=== PATIENT | female | born 1980 | race Caucasian/White ===

== ENCOUNTER 2016-10-01 21:34 | Inpatient (IN) | payer MEDICAID ==
[~2016-10-01] VITALS: Ht 160 cm; Wt 54.0 kg
[2016-10-01 22:41] LABS: DEFINITIVE VIEW TRANSMISSION; Hematocrit 36.1 % (36.0-46.0); Hemoglobin 11.7 g/dL (12.2-16.2); Mean Corpuscular Hemoglobin 27.7 pg (28.0-32.0); Mean Corpuscular Hgb Conc. 32.4 g/dL (32.0-36.0); Mean Corpuscular Volume 85.5 fL (80.0-100.0); Mean Platelet Volume 7.9 fL (7.4-10.4); Platelet Count (auto) 492 10^3/uL (140-450); Red Cell Distribution Width 12.7 % (11.6-16.0); White Blood Cell 5.9 10^3/uL (4.4-10.8)
[2016-10-01 22:44] LABS: Albumin 3.1 g/dL (3.4-5.0); BUN/Creatinine Ratio 19.7; Calcium 8.8 mg/dL (8.5-10.1)
[2016-10-01 22:47] LABS: Bilirubin, Total 0.1 mg/dL (0.2-1.0); Total Protein 6.5 g/dL (6.4-8.2)
[2016-10-01 22:52] LABS: Potassium 2.2 mmol/L (3.5-5.1)
[2016-10-01 22:54] LABS: Metamyelocytes % 0; Myelocytes % 0; Promyelocytes % 0; Reactive Lymphocytes 0
[2016-10-01] MEDS: POTASSIUM CHL 20MEQ/100ML 100 ML IV SCH ×2 (23:00→23:15)
[2016-10-01] MEDS ORDERED: POTASSIUM CHL 10% (20 MEQ/15ML) ORAL SOLN PO ONE (23:00)
[2016-10-01 23:35] LABS: B-Type Natriuretic Peptide 18.69 pg/mL (0-100)
[2016-10-01 23:43] LABS: Temperature: 22.9 C (20.0-25.0)
[2016-10-02] MEDS ORDERED: ONDANSETRON HCL 4 MG/2 ML VIAL IV ONE
[2016-10-02] MEDS ORDERED: diphenhdrAMINE HCL 50 MG/1 ML VL IV ONE
[2016-10-02] MEDS ORDERED: MORPHINE SULFATE 4 MG/ML SYRG IV ONE
[2016-10-02 00:14] LABS: Platelet Estimate Increased; RBC Morphology Normal
[2016-10-02] MEDS: POTASSIUM CHL 20MEQ/100ML 100 ML IV SCH ×3 (00:28→02:32)
[2016-10-02] MEDS ORDERED: LORazepam 2MG/ML-1ML VIAL IV ONE (02:00)
[2016-10-02 07:18] LABS: Urine RBC None Seen /hpf (0 - 4)
[2016-10-02 07:40] LABS: Urine Bilirubin Negative (Negative); Urine Blood Negative /uL (Negative); Urine Color Yellow (Yellow); Urine Glucose Normal (Normal); Urine Ketone Negative (Negative); Urine Nitrite Negative (Negative); Urine Squamous Epithelial Cell FEW /hpf (<5); Urine Urobilinogen Normal (Negative); Urine pH 8.5 (5.0-8.0)
[2016-10-02] MEDS ORDERED: POTASSIUM CHL 10% (20 MEQ/15ML) ORAL SOLN PO ONE ×2 (09:00→09:30)
[2016-10-02] MEDS ORDERED: ZOLPIDEM TARTRATE 5 MG TAB PO PRN (09:00)
[2016-10-02] MEDS ORDERED: ALUM & MAG HYDROX-SIMETH LIQ(MAALOX) 30 ML PO PRN (09:00)
[2016-10-02] MEDS ORDERED: MORPHINE SULF INJ 2 MG/ML SYRINGE 1ML IV PRN ×2 (09:00)
[2016-10-02] MEDS ORDERED: METHOCARBAMOL 500 MG TAB PO PRN (09:00)
[2016-10-02] MEDS ORDERED: LORazepam 0.5 MG TAB PO PRN (09:00)
[2016-10-02] MEDS ORDERED: NITROGLYCERIN 0.4 MG SL TAB SL PRN ×2 (09:00)
[2016-10-02] MEDS ORDERED: ACETAMINOPHEN 325 MG TAB PO PRN (09:00)
[2016-10-02] MEDS: DOCUSATE SOD 100 MG CAP PO SCH ×3 (09:30→10:00)
[2016-10-02] MEDS: MAGNESIUM OXIDE 400 MG TAB PO SCH ×2 (09:30→22:28)
[2016-10-02] MEDS: ASPirin 81 mg TAB PO SCH ×3 (09:30→10:00)
[2016-10-02] MEDS: CLOPIDOGREL BISULFATE 75 MG TAB PO SCH ×3 (09:31→10:00)
[2016-10-02] MEDS: CARVEDILOL 3.125 MG TAB PO SCH ×2 (09:45→22:29)
[2016-10-02] MEDS: ONDANSETRON HCL 4 MG/2 ML VIAL IV PRN ×3 (09:46→20:45)
[2016-10-02] MEDS: CHOLECALCIFEROL (VITD3) 1,000 UNIT TAB PO SCH (09:46)
[2016-10-02] MEDS: ENALAPRIL MALEATE 2.5 MG TAB PO SCH ×2 (09:46→22:33)
[2016-10-02] MEDS ORDERED: POTA10SO11 PO (10:09)
[2016-10-02] MEDS ORDERED: ONDA8TAB6 PO (10:09)
[2016-10-02] MEDS ORDERED: PERCOT PO (10:09)
[2016-10-02] MEDS ORDERED: ACET-1079 PO (10:09)
[2016-10-02] MEDS ORDERED: METH-562 PO (10:09)
[2016-10-02] MEDS ORDERED: CARV6.2551 PO (10:09)
[2016-10-02] MEDS: SODIUM CHLOR 0.9% PF (SALINE LOCK) 10ML VIAL IV SCH ×2 (14:00→22:27)
[2016-10-02 14:28] VITALS: BP 113/74
[2016-10-02] MEDS: OXYCODONE W/ ACETAMINOPHEN 5/325MG TABLET PO PRN ×2 (16:05→22:28)
[2016-10-02] MEDS: POTASSIUM CHL 10% (20 MEQ/15ML) ORAL SOLN PO SCH ×2 (16:56→21:25)
[2016-10-02 17:07] VITALS: BP 100/70
[2016-10-02 20:00] VITALS: BP 102/73
[2016-10-02 22:00] VITALS: BP 102/73
[2016-10-02] MEDS ORDERED: ATORVASTATIN 20 MG TAB PO SCH (22:00)
[2016-10-03 05:00] VITALS: BP 104/75
[2016-10-03] MEDS: SODIUM CHLOR 0.9% PF (SALINE LOCK) 10ML VIAL IV SCH ×2 (06:25→14:00)
[2016-10-03] MEDS: ONDANSETRON HCL 4 MG/2 ML VIAL IV PRN ×2 (06:26→15:23)
[2016-10-03] MEDS: POTASSIUM CHL 10% (20 MEQ/15ML) ORAL SOLN PO SCH (06:54)
[2016-10-03] MEDS: OXYCODONE W/ ACETAMINOPHEN 5/325MG TABLET PO PRN ×2 (06:58→15:22)
[2016-10-03 07:42] LABS: Basophils # (auto) 0.2 uL; Basophils % (auto) 3.2 % (0.0-2.0); DEFINITIVE VIEW TRANSMISSION; Eosinophils # (auto) 0.1 uL; Eosinophils % (auto) 1.8 % (0.0-7.0); Hematocrit 36.8 % (36.0-46.0); Hemoglobin 11.7 g/dL (12.2-16.2); Lymphocytes # (auto) 3.1 uL; Lymphocytes % (auto) 50.5 % (10.0-50.0); Mean Corpuscular Hemoglobin 27.6 pg (28.0-32.0); Mean Corpuscular Hgb Conc. 31.7 g/dL (32.0-36.0); Mean Corpuscular Volume 87.1 fL (80.0-100.0); Mean Platelet Volume 8.3 fL (7.4-10.4); Monocytes # (auto) 0.4 uL; Monocytes % (auto) 6.1 % (0.0-12.0); Neutrophils # (auto) 2.4 uL; Neutrophils % (auto) 38.4 % (37.0-80.0); Platelet Count (auto) 513 10^3/uL (140-450); White Blood Cell 6.2 10^3/uL (4.4-10.8)
[2016-10-03 08:00] VITALS: BP 86/55
[2016-10-03 08:16] LABS: Albumin 3.1 g/dL (3.4-5.0); BUN/Creatinine Ratio 8.3; Bilirubin, Total 0.4 mg/dL (0.2-1.0); Calcium 9.1 mg/dL (8.5-10.1); Potassium 4.5 mmol/L (3.5-5.1); Total Protein 6.7 g/dL (6.4-8.2)
[2016-10-03] MEDS: ASPirin 81 mg TAB PO SCH (10:00)
[2016-10-03] MEDS: DOCUSATE SOD 100 MG CAP PO SCH (10:00)
[2016-10-03] MEDS: CARVEDILOL 3.125 MG TAB PO SCH (10:00)
[2016-10-03] MEDS: ENALAPRIL MALEATE 2.5 MG TAB PO SCH (10:00)
[2016-10-03] MEDS: CLOPIDOGREL BISULFATE 75 MG TAB PO SCH (10:22)
[2016-10-03] MEDS: MAGNESIUM OXIDE 400 MG TAB PO SCH (10:22)
[2016-10-03] MEDS: CHOLECALCIFEROL (VITD3) 1,000 UNIT TAB PO SCH (10:23)
[2016-10-03 12:00] VITALS: BP 112/66
[2016-10-03 16:00] VITALS: BP 108/75
[2016-10-03 16:37] VITALS: BP 108/75
== END 2016-10-03 18:05 | disposition home or self-care (01) | DRG 425 ==
LOC: ER 21:46 → TELE 21:47 → TELE-WESTW 10-02 10:13
PROVIDERS: ADMIT Internal Medicine; ATTEND Internal Medicine Pulmonary Disease
DX: E87.6 Hypokalemia (principal); Z86.74 Personal history of sudden cardiac arrest; E44.0 Moderate protein-calorie malnutrition; K51.90 Ulcerative colitis, unspecified, without complications; R07.89 Other chest pain; F17.210 Nicotine dependence, cigarettes, uncomplicated; D63.8 Anemia in other chronic diseases classified elsewhere; I49.9 Cardiac arrhythmia, unspecified; K29.50 Unspecified chronic gastritis without bleeding; F41.9 Anxiety disorder, unspecified; K27.9 Peptic ulcer, site unspecified, unspecified as acute or chronic, without hemorrhage or perforation; J45.909 Unspecified asthma, uncomplicated; G89.29 Other chronic pain; M54.9 Dorsalgia, unspecified; E73.9 Lactose intolerance, unspecified; Z98.890 Other specified postprocedural states; Z88.1 Allergy status to other antibiotic agents; Z88.5 Allergy status to narcotic agent; Z88.0 Allergy status to penicillin; Z88.8 Allergy status to other drugs, medicaments and biological substances; Z83.79 Family history of other diseases of the digestive system; Z68.21 Body mass index [BMI] 21.0-21.9, adult
CPT/HCPCS: 36415; 36600; 71010; 80053; 80061; 81001; 81025; 82805; 83735; 83880; 84132; 84484; 85007; 85025; 85027; 85379; 93005; 93306; 96374; 96375; J2405; J3480

== ENCOUNTER 2016-10-22 22:03 | Inpatient (IN) | payer MEDICAID ==
[~2016-10-22] VITALS: Ht 154.9 cm; Wt 53.0 kg
[~2016-10-22 22:03] MED LIST: ACET-1079 PO; CARV6.2551 PO; METH-562 PO; ONDA8TAB6 PO; PERCOT PO; POTA10SO11 PO
[2016-10-22 23:16] LABS: Basophils # (auto) 0.3 uL; Basophils % (auto) 2.9 % (0.0-2.0); Eosinophils # (auto) 0.1 uL; Eosinophils % (auto) 0.7 % (0.0-7.0); Hematocrit 44.3 % (36.0-46.0); Hemoglobin 14.9 g/dL (12.2-16.2); Lymphocytes # (auto) 3.8 uL; Lymphocytes % (auto) 34.7 % (10.0-50.0); Mean Corpuscular Hgb Conc. 33.7 g/dL (32.0-36.0); Mean Platelet Volume 8.8 fL (7.4-10.4); Monocytes # (auto) 0.7 uL; Monocytes % (auto) 6.1 % (0.0-12.0); Neutrophils # (auto) 6.2 uL; Neutrophils % (auto) 55.6 % (37.0-80.0); Platelet Count (auto) 469 10^3/uL (140-450); Red Cell Distribution Width 14.1 % (11.6-16.0); White Blood Cell 11.1 10^3/uL (4.4-10.8)
[2016-10-22 23:18] LABS: Albumin 3.6 g/dL (3.4-5.0); BUN/Creatinine Ratio 11.5; Calcium 8.8 mg/dL (8.5-10.1); Magnesium 2.1 mg/dL (1.6-2.6)
[2016-10-22 23:20] LABS: Bilirubin, Total 0.5 mg/dL (0.2-1.0); Total Protein 7.3 g/dL (6.4-8.2)
[2016-10-22 23:38] LABS: Potassium 2.2 mmol/L (3.5-5.1)
[2016-10-23] MEDS ORDERED: LORazepam 2MG/ML-1ML VIAL IV ONE (00:15)
[2016-10-23] MEDS ORDERED: MORPHINE SULFATE 4 MG/ML SYRG IV ONE ×3 (00:15→05:45)
[2016-10-23] MEDS ORDERED: POTASSIUM CHL 10% (20 MEQ/15ML) ORAL SOLN PO ONE ×2 (00:15→10:15)
[2016-10-23] MEDS ORDERED: ONDANSETRON HCL 4 MG/2 ML VIAL IV ONE ×2 (00:15→05:45)
[2016-10-23] MEDS: POTASSIUM CHL 20MEQ/100ML 100 ML IV SCH ×4 (00:38→20:20)
[2016-10-23] MEDS ORDERED: SODIUM CHLORIDE 0.9% 1,000 ML IV ONE ×3 (01:30→11:00)
[2016-10-23] MEDS ORDERED: diphenhdrAMINE HCL 50 MG/1 ML VL IV ONE (01:30)
[2016-10-23] MEDS ORDERED: TEMAZEPAM 15 MG CAP PO PRN (07:30)
[2016-10-23] MEDS ORDERED: MORPHINE SULF INJ 2 MG/ML SYRINGE 1ML IV PRN (07:30)
[2016-10-23] MEDS ORDERED: LACTULOSE 20Gm/30ML SOLN PO PRN (07:30)
[2016-10-23] MEDS ORDERED: POTASSIUM CHL 20 Meq TABLET PO ONE (07:30)
[2016-10-23] MEDS ORDERED: NITROGLYCERIN 0.4 MG SL TAB SL PRN (07:30)
[2016-10-23] MEDS ORDERED: ACETAMINOPHEN 500 MG TAB PO PRN (07:30)
[2016-10-23] MEDS: PROMETHAZINE HCL 25 MG/ML 1ML IV PRN ×5 (09:50→21:22)
[2016-10-23] MEDS: MORPHINE SULF INJ 2 MG/ML SYRINGE 1ML IV PRN ×3 (09:50→21:22)
[2016-10-23] MEDS: SOD CHL 0.9%/ KCL 40MEQ 1,000 ML IV SCH ×2 (10:26→23:08)
[2016-10-23] MEDS: PANTOPRAZOLE 40 MG TAB PO SCH (10:31)
[2016-10-23 17:29] VITALS: BP 91/64
[2016-10-23] MEDS: LORazepam 0.5 MG TAB PO PRN (19:31)
[2016-10-23] MEDS ORDERED: POTASSIUM CHL 20MEQ/100ML 100 ML IV ONE (20:13)
[2016-10-23 22:16] VITALS: BP 106/53
[2016-10-24] MEDS: SOD CHL 0.9%/ KCL 40MEQ 1,000 ML IV SCH ×3 (01:17→16:49)
[2016-10-24] MEDS: PROMETHAZINE HCL 25 MG/ML 1ML IV PRN ×5 (01:41→19:48)
[2016-10-24] MEDS: MORPHINE SULF INJ 2 MG/ML SYRINGE 1ML IV PRN ×3 (01:41→11:12)
[2016-10-24] MEDS: LORazepam 0.5 MG TAB PO PRN ×2 (01:42→08:08)
[2016-10-24 04:44] VITALS: BP 93/82
[2016-10-24 07:32] LABS: Albumin 2.4 g/dL (3.4-5.0); BUN/Creatinine Ratio 6.9; Bilirubin, Total 0.2 mg/dL (0.2-1.0); Calcium 8.4 mg/dL (8.5-10.1); Potassium 4.3 mmol/L (3.5-5.1); Total Protein 5.1 g/dL (6.4-8.2)
[2016-10-24 08:00] VITALS: BP 93/82
[2016-10-24 09:00] VITALS: BP 103/56
[2016-10-24] MEDS: PANTOPRAZOLE 40 MG TAB PO SCH (10:56)
[2016-10-24] MEDS ORDERED: chlorproMAZINE HCL 25 MG TAB PO PRN (12:30)
[2016-10-24 13:00] VITALS: BP 120/66
[2016-10-24] MEDS: MORPHINE SULFATE 4 MG/ML SYRG IV PRN ×2 (15:15→19:48)
[2016-10-24 16:44] LABS: Urine RBC None Seen /hpf (0 - 4)
[2016-10-24 16:47] VITALS: BP 89/58
[2016-10-24 17:30] LABS: Urine Bilirubin Negative (Negative); Urine Blood Negative /uL (Negative); Urine Color Yellow (Yellow); Urine Glucose Normal (Normal); Urine Ketone Negative (Negative); Urine Nitrite Negative (Negative); Urine Squamous Epithelial Cell FEW /hpf (<5); Urine Urobilinogen Normal (Negative); Urine pH 8.5 (5.0-8.0)
[2016-10-24 20:00] VITALS: BP 97/53
[2016-10-24] MEDS: clonazePAM 0.5 MG TAB PO SCH (21:22)
[2016-10-25] MEDS: PROMETHAZINE HCL 25 MG/ML 1ML IV PRN ×5 (00:38→20:46)
[2016-10-25] MEDS: SOD CHL 0.9%/ KCL 40MEQ 1,000 ML IV SCH (01:10)
[2016-10-25] MEDS: MORPHINE SULFATE 4 MG/ML SYRG IV PRN ×4 (01:25→20:45)
[2016-10-25 05:00] VITALS: BP 92/64
[2016-10-25 06:10] LABS: Basophils # (auto) 0.3 uL; Basophils % (auto) 2.8 % (0.0-2.0); Eosinophils # (auto) 0.2 uL; Eosinophils % (auto) 1.7 % (0.0-7.0); Hematocrit 36.4 % (36.0-46.0); Lymphocytes # (auto) 3.4 uL; Mean Corpuscular Hgb Conc. 32.9 g/dL (32.0-36.0); Mean Corpuscular Volume 88.2 fL (80.0-100.0); Mean Platelet Volume 9.3 fL (7.4-10.4); Monocytes # (auto) 0.2 uL; Monocytes % (auto) 1.9 % (0.0-12.0); Neutrophils % (auto) 55.6 % (37.0-80.0); Platelet Count (auto) 326 10^3/uL (140-450); White Blood Cell 8.9 10^3/uL (4.4-10.8)
[2016-10-25 06:37] LABS: BUN/Creatinine Ratio 7.9; Calcium 8.9 mg/dL (8.5-10.1); Magnesium 1.7 mg/dL (1.6-2.6); Phosphorus 3.3 mg/dL (2.5-4.90); Potassium 3.9 mmol/L (3.5-5.1)
[2016-10-25 07:42] VITALS: BP 109/72
[2016-10-25] MEDS ORDERED: LORazepam 2MG/ML-1ML VIAL IV PRN (10:15)
[2016-10-25] MEDS: PANTOPRAZOLE 40 MG TAB PO SCH (10:36)
[2016-10-25] MEDS: clonazePAM 0.5 MG TAB PO SCH ×2 (10:36→22:03)
[2016-10-25] MEDS ORDERED: PROMETHAZINE HCL 25 MG/ML 1ML IM ONE (10:45)
[2016-10-25] MEDS ORDERED: MORPHINE SULFATE 10 MG/ML INJ 1ML SDV IM ONE (10:45)
[2016-10-25 12:09] VITALS: BP 126/61
[2016-10-25] MEDS ORDERED: LIDOCAINE 1% HCL (LOCAL ANESTH.) INJ 20ML MDV ID ONE (14:00)
[2016-10-25] MEDS: D5W/SOD CHL 0.45%/KCL 20MEQ 1,000 ML IV SCH (14:33)
[2016-10-25 16:28] VITALS: BP 102/68
[2016-10-25 19:10] LABS: Sjogren's Anti-SS-A Antibody <0.2 AI (0.0-0.9)
[2016-10-25 20:00] VITALS: BP 112/78
[2016-10-25 22:00] VITALS: BP 112/78
[2016-10-25] MEDS: SODIUM CHLOR 0.9% PF (SALINE LOCK) 10ML VIAL IV SCH (22:23)
[2016-10-26 05:00] VITALS: BP 98/63
[2016-10-26] MEDS: PROMETHAZINE HCL 25 MG/ML 1ML IV PRN ×2 (06:16→10:27)
[2016-10-26] MEDS: D5W/SOD CHL 0.45%/KCL 20MEQ 1,000 ML IV SCH ×2 (06:38→06:42)
[2016-10-26 08:03] VITALS: BP 101/60
[2016-10-26] MEDS: SODIUM CHLOR 0.9% PF (SALINE LOCK) 10ML VIAL IV SCH (09:49)
[2016-10-26] MEDS: clonazePAM 0.5 MG TAB PO SCH (09:49)
[2016-10-26] MEDS: PANTOPRAZOLE 40 MG TAB PO SCH (09:49)
[2016-10-26] MEDS: MORPHINE SULFATE 4 MG/ML SYRG IV PRN (10:27)
[2016-10-26] MEDS ORDERED: LORazepam 2MG/ML-1ML VIAL IV ONE (12:00)
[2016-10-26 14:06] VITALS: BP 101/60
== END 2016-10-26 15:54 | disposition home or self-care (01) | DRG 460 ==
LOC: EDBD 22:03 → ER 22:08 → OVERFLOW 22:09 → TELE-E-ADS 10-23 15:11 → TELE-EAST 10-23 16:07 → EAST 10-24 16:57
PROVIDERS: ADMIT Internal Medicine; ATTEND Nurse Practitioner Acute Care
PROC: 02HV33Z Insertion of Infusion Device into Superior Vena Cava, Percutaneous Approach (ICD-10-PCS; principal; 2016-10-25)
DX: N17.0 Acute kidney failure with tubular necrosis (principal); E87.0 Hyperosmolality and hypernatremia; E87.3 Alkalosis; I95.9 Hypotension, unspecified; E87.1 Hypo-osmolality and hyponatremia; E88.09 Other disorders of plasma-protein metabolism, not elsewhere classified; G43.A0 Cyclical vomiting, in migraine, not intractable; E87.5 Hyperkalemia; E87.6 Hypokalemia; D72.829 Elevated white blood cell count, unspecified; J45.909 Unspecified asthma, uncomplicated; K29.70 Gastritis, unspecified, without bleeding; Z87.11 Personal history of peptic ulcer disease; F41.9 Anxiety disorder, unspecified; E86.0 Dehydration; F12.90 Cannabis use, unspecified, uncomplicated; F17.210 Nicotine dependence, cigarettes, uncomplicated; N17.9 Acute kidney failure, unspecified; Z80.0 Family history of malignant neoplasm of digestive organs; Z83.3 Family history of diabetes mellitus; Z87.442 Personal history of urinary calculi; Z88.1 Allergy status to other antibiotic agents; Z88.5 Allergy status to narcotic agent; Z88.0 Allergy status to penicillin; Z88.8 Allergy status to other drugs, medicaments and biological substances; Z90.12 Acquired absence of left breast and nipple; Z84.89 Family history of other specified conditions; E86.1 Hypovolemia; Z87.898 Personal history of other specified conditions; E86.9 Volume depletion, unspecified
CPT/HCPCS: 36415; 36569; 71010; 76705; 76775; 78226; 80048; 80053; 80061; 81001; 81025; 82550; 82570; 83516; 83735; 83935; 84100; 84133; 84300; 84443; 84484; 85025; 85379; 85652; 86225; 86235; 87081; 93005; 96374; 96375; 96376; G0434; J2405; J3480; Q0161

== ENCOUNTER 2016-11-10 21:12 | Observation (INO) | payer MEDICAID ==
[~2016-11-10] VITALS: Ht 154.9 cm; Wt 68.0 kg
[2016-11-10 21:55] LABS: Basophils # (auto) 0.1 uL; Basophils % (auto) 1.9 % (0.0-2.0); Eosinophils # (auto) 0 uL; Eosinophils % (auto) 0.5 % (0.0-7.0); Hematocrit 42.6 % (36.0-46.0); Hemoglobin 14.4 g/dL (12.2-16.2); Lymphocytes # (auto) 3.6 uL; Lymphocytes % (auto) 45.3 % (10.0-50.0); Mean Corpuscular Hemoglobin 29.1 pg (28.0-32.0); Mean Corpuscular Hgb Conc. 33.9 g/dL (32.0-36.0); Mean Corpuscular Volume 85.8 fL (80.0-100.0); Mean Platelet Volume 8.7 fL (7.4-10.4); Monocytes # (auto) 0.6 uL; Monocytes % (auto) 7.4 % (0.0-12.0); Neutrophils # (auto) 3.5 uL; Neutrophils % (auto) 44.9 % (37.0-80.0); Platelet Count (auto) 418 10^3/uL (140-450); Red Cell Distribution Width 15.1 % (11.6-16.0); White Blood Cell 7.9 10^3/uL (4.4-10.8)
[2016-11-10 22:14] LABS: Albumin 3.6 g/dL (3.4-5.0); Alkaline Phosphatase 65 U/L (45-117); Anion Gap 15 (5-15); Aspartate Aminotransferase 16 U/L (15-37); BUN/Creatinine Ratio 20.3; Bilirubin, Total 0.6 mg/dL (0.2-1.0); Blood Urea Nitrogen 13 mg/dL (7-18); Calcium 9.5 mg/dL (8.5-10.1); Carbon Dioxide 37 mmol/L (21-32); Chloride 80 mmol/L (98-107); GFR African American 134 mL/min; GFR Non-African American 110 mL/min; Glucose 92 mg/dL (74-106); Sodium 132 mmol/L (136-145); Total Protein 7.5 g/dL (6.4-8.2)
[2016-11-10 22:20] LABS: Potassium 2.3 mmol/L (3.5-5.1)
[2016-11-10] MEDS ORDERED: POTASSIUM CHL 20 Meq TABLET PO ONE (22:30)
[2016-11-10 23:34] LABS: INR 1.04 (0.9-1.15); Partial Thromboplastin Time 25.4 sec (22.64-33.71); Prothrombin Time 10.7 sec (9.37-12.3)
[2016-11-11] MEDS ORDERED: SODIUM CHLORIDE 0.9% 250 ML IV ONE
[2016-11-11 00:25] LABS: B-Type Natriuretic Peptide 20.38 pg/mL (0-100)
[2016-11-11 00:34] LABS: Temperature: 22.5 C (20.0-25.0)
[2016-11-11] MEDS: POTASSIUM CHL 20MEQ/100ML 100 ML IV SCH ×2 (00:51→03:14)
[2016-11-11] MEDS ORDERED: MORPHINE SULF INJ 2 MG/ML SYRINGE 1ML IV ONE (02:00)
[2016-11-11] MEDS ORDERED: ONDANSETRON HCL 4 MG/2 ML VIAL IV ONE ×2 (02:45)
[2016-11-11 06:52] VITALS: BP 106/62
== END 2016-11-11 05:27 | disposition home or self-care (01) | DRG 241 ==
LOC: ER 21:16 → OVERFLOW 11-11 03:51 → ER 11-11 05:27
PROVIDERS: ADMIT Emergency Medicine; ATTEND Emergency Medicine
DX: K29.00 Acute gastritis without bleeding (principal); F41.9 Anxiety disorder, unspecified; J45.909 Unspecified asthma, uncomplicated; Z87.11 Personal history of peptic ulcer disease; F17.210 Nicotine dependence, cigarettes, uncomplicated; Z79.899 Other long term (current) drug therapy
CPT/HCPCS: 36415; 80053; 83880; 84132; 84484; 85025; 85379; 85610; 85730; 93005; 96365; 96366; 96375; 96376; G0378; J2405; J3480

== ENCOUNTER 2016-12-21 02:37 | Emergency (ER) | payer MEDICAID ==
[~2016-12-21] VITALS: Ht 160 cm; Wt 43.5 kg
[2016-12-21 02:40] VITALS: BP 94/67
[2016-12-21 03:08] LABS: Urine Bilirubin Negative (Negative); Urine Blood Negative /uL (Negative); Urine Color Colorless (Yellow); Urine Glucose Normal (Normal); Urine Ketone Negative (Negative); Urine Nitrite Negative (Negative); Urine RBC <1 /hpf (0 - 4); Urine Urobilinogen Normal (Negative); Urine pH 7.5 (5.0-8.0)
[2016-12-21 03:22] LABS: BUN/Creatinine Ratio 14.9; Calcium 8.6 mg/dL (8.5-10.1)
[2016-12-21] MEDS ORDERED: ONDANSETRON ODT 4 MG TAB PO ONE (03:30)
[2016-12-21] MEDS ORDERED: POTASSIUM CHL 10% (20 MEQ/15ML) ORAL SOLN PO ONE (03:45)
[2016-12-21 03:59] LABS: Potassium 2.9 mmol/L (3.5-5.1)
[2016-12-21] MEDS ORDERED: ACETAMINOPHEN 500 MG TAB PO ONE (04:00)
== END 2016-12-21 04:05 | disposition home or self-care (01) ==
LOC: ER 02:37
DX: E87.6 Hypokalemia (principal); J45.909 Unspecified asthma, uncomplicated; F17.210 Nicotine dependence, cigarettes, uncomplicated; Z87.11 Personal history of peptic ulcer disease; Z88.1 Allergy status to other antibiotic agents; Z88.0 Allergy status to penicillin; Z88.6 Allergy status to analgesic agent
CPT/HCPCS: 36415; 80048; 81001; 81025; 99284; Q0162

== ENCOUNTER 2018-04-29 12:45 | Inpatient (IN) | payer MEDICAID, OTHER ==
[~2018-04-29] VITALS: Ht 152.4 cm; Wt 69.4 kg
[~2018-04-29 12:45] MED LIST changes: +ONDA-143 PO; -ONDA8TAB6 PO
[2018-04-29 13:51] LABS: Basophils # (auto) 0 uL; Basophils % (auto) 0.3 % (0.0-2.0); Eosinophils # (auto) 0 uL; Eosinophils % (auto) 0.2 % (0.0-7.0); Hematocrit 45.1 % (36.0-46.0); Hemoglobin 15.5 g/dL (12.2-16.2); Lymphocytes # (auto) 1.8 uL; Lymphocytes % (auto) 12.6 % (10.0-50.0); Mean Corpuscular Hemoglobin 29.5 pg (28.0-32.0); Mean Corpuscular Hgb Conc. 34.2 g/dL (32.0-36.0); Mean Corpuscular Volume 86.2 fL (80.0-100.0); Monocytes # (auto) 1.1 uL; Monocytes % (auto) 7.9 % (0.0-12.0); Neutrophils # (auto) 11.3 uL; Platelet Count (auto) 353 10^3/uL (140-450); Red Blood Cells 5.23 10^6/uL (4.0-5.20); Red Cell Distribution Width 13.7 % (11.8-14.3); White Blood Cell 14.3 10^3/uL (4.4-10.8)
[2018-04-29 14:06] LABS: Albumin 3.7 g/dL (3.4-5.0); BUN/Creatinine Ratio 18.8; Bilirubin, Total 1.6 mg/dL (0.2-1.0); Calcium 8.6 mg/dL (8.5-10.1); Potassium 3.1 mmol/L (3.5-5.1); Total Protein 7.7 g/dL (6.4-8.2)
[2018-04-29 15:17] LABS: Urine Bacteria NONE SEEN /hpf (None Seen); Urine Blood Negative /uL (Negative); Urine Mucus FEW (None Seen); Urine Specific Gravity 1.017 (1.001-1.035); Urine WBC 5 /hpf (0 - 5)
[2018-04-29] MEDS ORDERED: MORPHINE SULF INJ 2 MG/ML SYRINGE 1ML IV ONE (15:30)
[2018-04-29] MEDS ORDERED: SODIUM CHLORIDE 0.9% 1,000 ML IV ONE (15:30)
[2018-04-29] MEDS ORDERED: PANTOPRAZOLE 40 MG/10 ML VIAL IV ONE ×2 (15:30→19:15)
[2018-04-29] MEDS ORDERED: PROMETHAZINE HCL 25 MG/ML 1ML IV ONE (15:30)
[2018-04-29 15:51] LABS: Alcohol, Urine < 3.0 mg/dL (0-5); Barbiturate Scree,Urine NEGATIVE (NEGATIVE); Benzodiazephine Screen, Urine NEGATIVE (NEGATIVE); Cannabinoid Screen, Urine POSITIVE (NEGATIVE); Cocaine Screen, Urine NEGATIVE (NEGATIVE); Opiate Scree,Urine NEGATIVE (NEGATIVE); Phencyclidine Screen, Urine NEGATIVE (NEGATIVE)
[2018-04-29] MEDS ORDERED: SODIUM CHLORIDE 0.9% 1,000 ML IVB ONE (16:00)
[2018-04-29 16:12] LABS: Amphetamine Screen, Urine POSITIVE (NEGATIVE)
[2018-04-29] MEDS ORDERED: DEXTROSE (50%) 50ML SYRG IV ONE (17:15)
[2018-04-29] MEDS ORDERED: NITROGLYCERIN 0.4 MG SL TAB SL PRN (19:15)
[2018-04-29] MEDS ORDERED: MORPHINE SULF INJ 2 MG/ML SYRINGE 1ML IV PRN (19:15)
[2018-04-29] MEDS ORDERED: ACETAMINOPHEN 325 MG TAB PO PRN (19:15)
[2018-04-29] MEDS ORDERED: FAMOTIDINE (10MG/ML) 2ML VL IV ONE (19:15)
[2018-04-29] MEDS ORDERED: DOCUSATE SOD 100 MG CAP PO PRN (19:15)
[2018-04-29] MEDS ORDERED: POTASSIUM EFFERVESENT TAB 25 MEQ PO ONE (19:15)
[2018-04-29] MEDS: ONDANSETRON HCL 4 MG/2 ML VIAL IV PRN ×2 (20:04→23:59)
[2018-04-29] MEDS: MORPHINE SULF INJ 2 MG/ML SYRINGE 1ML IV PRN ×2 (20:04→23:59)
[2018-04-29] MEDS: SODIUM CHLORIDE 0.9% 1,000 ML IV SCH (20:40)
[2018-04-29 21:00] VITALS: BP 111/68
[2018-04-29] MEDS: TEMAZEPAM 15 MG CAP PO PRN (21:18)
[2018-04-29] MEDS: OXYCODONE W/ ACETAMINOPHEN 5/325MG TABLET PO PRN (21:18)
[2018-04-29 21:28] LABS: Hemoglobin 13.4 g/dL (12.2-16.2)
[2018-04-29 22:00] VITALS: BP 111/68
[2018-04-30] MEDS: ONDANSETRON HCL 4 MG/2 ML VIAL IV PRN ×3 (04:30→13:58)
[2018-04-30] MEDS: MORPHINE SULF INJ 2 MG/ML SYRINGE 1ML IV PRN ×5 (04:32→23:45)
[2018-04-30 05:00] VITALS: BP 103/55
[2018-04-30] MEDS: LORazepam 2MG/ML-1ML VIAL IV PRN ×2 (05:13→17:28)
[2018-04-30] MEDS: SODIUM CHLORIDE 0.9% 1,000 ML IV SCH ×3 (05:13→19:33)
[2018-04-30 05:24] LABS: Basophils # (auto) 0 uL; Basophils % (auto) 0.3 % (0.0-2.0); Eosinophils # (auto) 0.1 uL; Eosinophils % (auto) 0.4 % (0.0-7.0); Hematocrit 41.9 % (36.0-46.0); Hemoglobin 14.2 g/dL (12.2-16.2); Lymphocytes # (auto) 3.3 uL; Lymphocytes % (auto) 24.8 % (10.0-50.0); Mean Corpuscular Hemoglobin 29.4 pg (28.0-32.0); Mean Corpuscular Hgb Conc. 33.8 g/dL (32.0-36.0); Monocytes # (auto) 0.9 uL; Monocytes % (auto) 6.8 % (0.0-12.0); Neutrophils # (auto) 8.9 uL; Neutrophils % (auto) 67.7 % (37.0-80.0); Platelet Count (auto) 295 10^3/uL (140-450); Red Blood Cells 4.82 10^6/uL (4.0-5.20); Red Cell Distribution Width 13.6 % (11.8-14.3); White Blood Cell 13.1 10^3/uL (4.4-10.8)
[2018-04-30 05:39] LABS: BUN/Creatinine Ratio 8.8; Potassium 3.5 mmol/L (3.5-5.1)
[2018-04-30 05:45] LABS: INR 0.96 (0.9-1.15); Prothrombin Time 10.3 sec (9.27-12.13)
[2018-04-30 05:53] LABS: Bilirubin, Total 0.5 mg/dL (0.2-1.0); Total Protein 6.4 g/dL (6.4-8.2)
[2018-04-30] MEDS: OXYCODONE W/ ACETAMINOPHEN 5/325MG TABLET PO PRN ×3 (06:32→21:07)
[2018-04-30 08:36] VITALS: BP 117/80
[2018-04-30] MEDS: FAMOTIDINE (10MG/ML) 2ML VL IV SCH (08:50)
[2018-04-30] MEDS: PANTOPRAZOLE 40 MG/10 ML VIAL IV SCH (08:51)
[2018-04-30] MEDS: MULTIPLE VITAMIN TAB PO SCH (08:51)
[2018-04-30] MEDS: Ensure Enlive Strawberry 8oz Bottle PO SCH ×2 (12:00→18:00)
[2018-04-30 12:02] VITALS: BP 122/94
[2018-04-30 16:48] VITALS: BP 111/67
[2018-04-30] MEDS: SUCRALFATE 1 GM/10 ML ORAL SUSP PO SCH ×2 (17:28→21:06)
[2018-04-30] MEDS: ENSURE CLEAR Mixed Berry 8oz Carton PO SCH (18:11)
[2018-04-30 18:57] LABS: Hematocrit 37.9 % (36.0-46.0); Hemoglobin 12.6 g/dL (12.2-16.2)
[2018-04-30] MEDS: PROMETHAZINE HCL 25 MG/ML 1ML IV PRN ×2 (19:34→23:45)
[2018-04-30 22:00] VITALS: BP 122/64
[2018-04-30] MEDS: diphenhdrAMINE HCL 50 MG/1 ML VL IV PRN (22:12)
[2018-04-30] MEDS: TEMAZEPAM 15 MG CAP PO PRN (23:46)
[2018-05-01] MEDS: SODIUM CHLORIDE 0.9% 1,000 ML IV SCH ×3 (04:25→21:39)
[2018-05-01 05:20] VITALS: BP 98/78
[2018-05-01 06:14] LABS: Basophils # (auto) 0 uL; Basophils % (auto) 0.7 % (0.0-2.0); Eosinophils # (auto) 0.1 uL; Eosinophils % (auto) 1.3 % (0.0-7.0); Hemoglobin 12.8 g/dL (12.2-16.2); Lymphocytes # (auto) 2.5 uL; Lymphocytes % (auto) 37.6 % (10.0-50.0); Mean Corpuscular Hemoglobin 29.5 pg (28.0-32.0); Mean Corpuscular Hgb Conc. 33.6 g/dL (32.0-36.0); Mean Corpuscular Volume 87.8 fL (80.0-100.0); Monocytes # (auto) 0.7 uL; Monocytes % (auto) 10.3 % (0.0-12.0); Neutrophils # (auto) 3.4 uL; Neutrophils % (auto) 50.1 % (37.0-80.0); Nucleated Red Blood Cells % 0.1 %; Platelet Count (auto) 260 10^3/uL (140-450); Red Blood Cells 4.33 10^6/uL (4.0-5.20); Red Cell Distribution Width 13.7 % (11.8-14.3); White Blood Cell 6.7 10^3/uL (4.4-10.8)
[2018-05-01 06:19] LABS: BUN/Creatinine Ratio 4.2; Calcium 7.7 mg/dL (8.5-10.1); Potassium 3.6 mmol/L (3.5-5.1)
[2018-05-01] MEDS: SUCRALFATE 1 GM/10 ML ORAL SUSP PO SCH ×4 (06:50→21:38)
[2018-05-01] MEDS: PROMETHAZINE HCL 25 MG/ML 1ML IV PRN ×3 (07:09→20:19)
[2018-05-01] MEDS: MORPHINE SULF INJ 2 MG/ML SYRINGE 1ML IV PRN ×3 (07:10→21:39)
[2018-05-01] MEDS: LORazepam 2MG/ML-1ML VIAL IV PRN ×2 (08:46→21:39)
[2018-05-01] MEDS: diphenhdrAMINE HCL 50 MG/1 ML VL IV PRN ×2 (08:46→22:50)
[2018-05-01] MEDS: OXYCODONE W/ ACETAMINOPHEN 5/325MG TABLET PO PRN ×2 (08:47→20:19)
[2018-05-01 09:00] VITALS: BP 121/77
[2018-05-01] MEDS: FAMOTIDINE (10MG/ML) 2ML VL IV SCH (10:00)
[2018-05-01] MEDS: PANTOPRAZOLE 40 MG/10 ML VIAL IV SCH (10:00)
[2018-05-01] MEDS: MULTIPLE VITAMIN TAB PO SCH (10:00)
[2018-05-01] MEDS ORDERED: MIDAZOLAM HCL 5 MG/ML-1ML VIAL ONE (11:39)
[2018-05-01] MEDS ORDERED: fentaNYL CITRATE 100 MCG/2 ML VL ONE (11:39)
[2018-05-01] MEDS ORDERED: NALOXONE HCL 0.4 MG/ML VIAL ONE (11:39)
[2018-05-01] MEDS ORDERED: SODIUM CHLORIDE LOCK 10 ML ONE (11:40)
[2018-05-01] MEDS ORDERED: FLUMAZENIL 0.1 MG/ML INJ 10ML MDV IV ONE (11:40)
[2018-05-01] MEDS ORDERED: LIDOCAINE VISCOUS 2% 15ML UD ONE (11:44)
[2018-05-01] MEDS: MIDAZOLAM HCL 5 MG/ML-1ML VIAL IV ONE ×2 (11:58→12:01)
[2018-05-01] MEDS: fentaNYL CITRATE 100 MCG/2 ML VL IV ONE ×2 (11:58→15:07)
[2018-05-01] MEDS: ENSURE CLEAR Mixed Berry 8oz Carton PO SCH ×3 (12:00→18:00)
[2018-05-01] MEDS ORDERED: PANTOPRAZOLE 40 MG TAB PO ONE (12:30)
[2018-05-01 13:00] VITALS: BP 126/87
[2018-05-01 17:00] VITALS: BP 112/56
[2018-05-01] MEDS: PANTOPRAZOLE 40 MG TAB PO SCH (21:39)
[2018-05-01 22:00] VITALS: BP 134/71
[2018-05-01] MEDS ORDERED: FAMOTIDINE 20 MG TAB PO SCH (22:00)
[2018-05-01] MEDS: TEMAZEPAM 15 MG CAP PO PRN (22:50)
[2018-05-02] MEDS: PROMETHAZINE HCL 25 MG/ML 1ML IV PRN ×3 (05:06→13:15)
[2018-05-02] MEDS: MORPHINE SULF INJ 2 MG/ML SYRINGE 1ML IV PRN ×3 (05:06→13:15)
[2018-05-02] MEDS: SODIUM CHLORIDE 0.9% 1,000 ML IV SCH ×2 (05:06→13:15)
[2018-05-02 05:30] VITALS: BP 126/73
[2018-05-02 08:00] VITALS: BP 138/80
[2018-05-02] MEDS: ENSURE CLEAR Mixed Berry 8oz Carton PO SCH ×2 (08:00→13:15)
[2018-05-02] MEDS: SUCRALFATE 1 GM/10 ML ORAL SUSP PO SCH ×2 (08:11→11:43)
[2018-05-02] MEDS: OXYCODONE W/ ACETAMINOPHEN 5/325MG TABLET PO PRN (08:11)
[2018-05-02 08:28] LABS: Basophils # (auto) 0 uL; Basophils % (auto) 0.2 % (0.0-2.0); Eosinophils # (auto) 0.1 uL; Eosinophils % (auto) 1.8 % (0.0-7.0); Hematocrit 41.3 % (36.0-46.0); Hemoglobin 13.5 g/dL (12.2-16.2); Lymphocytes # (auto) 2.8 uL; Lymphocytes % (auto) 44.2 % (10.0-50.0); Mean Corpuscular Hemoglobin 28.7 pg (28.0-32.0); Mean Corpuscular Hgb Conc. 32.7 g/dL (32.0-36.0); Mean Corpuscular Volume 87.7 fL (80.0-100.0); Monocytes # (auto) 0.5 uL; Monocytes % (auto) 8.1 % (0.0-12.0); Neutrophils # (auto) 2.8 uL; Neutrophils % (auto) 45.7 % (37.0-80.0); Nucleated Red Blood Cells % 0.1 %; Platelet Count (auto) 279 10^3/uL (140-450); Red Cell Distribution Width 13.8 % (11.8-14.3); White Blood Cell 6.2 10^3/uL (4.4-10.8)
[2018-05-02 08:52] VITALS: BP 138/80
[2018-05-02 08:58] LABS: Albumin 2.7 g/dL (3.4-5.0); BUN/Creatinine Ratio 4.4; Calcium 7.8 mg/dL (8.5-10.1); Potassium 3.8 mmol/L (3.5-5.1)
[2018-05-02 09:01] LABS: Bilirubin, Total 0.5 mg/dL (0.2-1.0)
[2018-05-02] MEDS: LORazepam 2MG/ML-1ML VIAL IV PRN (09:18)
[2018-05-02] MEDS: PANTOPRAZOLE 40 MG TAB PO SCH (09:19)
[2018-05-02] MEDS: MULTIPLE VITAMIN TAB PO SCH (09:19)
[2018-05-02 11:16] VITALS: BP 138/80
[2018-05-02] MEDS ORDERED: hydrOXYzine 25 MG TAB or CAP PO PRN (12:00)
[2018-05-02 12:31] VITALS: BP 144/84
== END 2018-05-02 18:38 | disposition home or self-care (01) | DRG 243 ==
LOC: EDBD 12:45 → ER 12:45 → TELE 12:46 → TELE-WESTW 20:11
PROVIDERS: ADMIT Internal Medicine; ATTEND Internal Medicine
PROC: 0DB68ZX Excision of Stomach, Via Natural or Artificial Opening Endoscopic, Diagnostic (ICD-10-PCS; principal; 2018-05-01 11:56)
DX: K20.9 Esophagitis, unspecified (principal); E44.0 Moderate protein-calorie malnutrition; K29.01 Acute gastritis with bleeding; E87.1 Hypo-osmolality and hyponatremia; K50.911 Crohn's disease, unspecified, with rectal bleeding; E87.6 Hypokalemia; F17.210 Nicotine dependence, cigarettes, uncomplicated; F41.9 Anxiety disorder, unspecified; K29.81 Duodenitis with bleeding; F15.10 Other stimulant abuse, uncomplicated; Z88.1 Allergy status to other antibiotic agents; Z88.0 Allergy status to penicillin; Z87.11 Personal history of peptic ulcer disease; Z91.19 Patient's noncompliance with other medical treatment and regimen; Z88.5 Allergy status to narcotic agent; Z88.8 Allergy status to other drugs, medicaments and biological substances; Z79.899 Other long term (current) drug therapy; Z68.29 Body mass index [BMI] 29.0-29.9, adult
CPT/HCPCS: 36415; 43239; 71045; 74176; 76705; 80048; 80053; 80307; 81001; 81025; 82150; 82962; 83690; 85014; 85018; 85025; 85610; 93005; 94761; 96361; 96374; 96375; A6257; C9113; J2250; J2405; J3490

== ENCOUNTER 2018-06-20 13:56 | Emergency (ER) | payer MEDICAID ==
[~2018-06-20] VITALS: Ht 152.4 cm; Wt 58.1 kg
[2018-06-20 14:38] LABS: Basophils # (auto) 0.1 uL; Basophils % (auto) 1.1 % (0.0-2.0); Eosinophils # (auto) 0.2 uL; Eosinophils % (auto) 2.2 % (0.0-7.0); Hematocrit 41.6 % (36.0-46.0); Hemoglobin 13.9 g/dL (12.2-16.2); Lymphocytes # (auto) 2.2 uL; Lymphocytes % (auto) 31.2 % (10.0-50.0); Mean Corpuscular Hemoglobin 29.4 pg (28.0-32.0); Mean Corpuscular Hgb Conc. 33.4 g/dL (32.0-36.0); Mean Corpuscular Volume 87.9 fL (80.0-100.0); Monocytes # (auto) 0.5 uL; Monocytes % (auto) 7.1 % (0.0-12.0); Neutrophils # (auto) 4.2 uL; Neutrophils % (auto) 58.4 % (37.0-80.0); Platelet Count (auto) 425 10^3/uL (140-450); Red Blood Cells 4.73 10^6/uL (4.0-5.20); Red Cell Distribution Width 13.7 % (11.8-14.3); White Blood Cell 7.1 10^3/uL (4.4-10.8)
[2018-06-20] MEDS ORDERED: SODIUM CHLORIDE 0.9% 1,000 ML IV ONE (14:45)
[2018-06-20 14:57] LABS: Albumin 3.6 g/dL (3.4-5.0); Calcium 8.7 mg/dL (8.5-10.1); Potassium 3.5 mmol/L (3.5-5.1)
[2018-06-20 14:59] LABS: Bilirubin, Total 0.4 mg/dL (0.2-1.0); Total Protein 7.1 g/dL (6.4-8.2)
[2018-06-20] MEDS ORDERED: ACETAMINOPHEN 325 MG TAB PO ONE (15:00)
[2018-06-20 15:26] VITALS: BP 116/86
== END 2018-06-20 15:49 | disposition home or self-care (01) ==
LOC: ER 13:56
DX: F41.9 Anxiety disorder, unspecified (principal); F12.10 Cannabis abuse, uncomplicated; F17.210 Nicotine dependence, cigarettes, uncomplicated; J45.909 Unspecified asthma, uncomplicated; F15.10 Other stimulant abuse, uncomplicated; Z88.0 Allergy status to penicillin; Z88.6 Allergy status to analgesic agent; Z88.1 Allergy status to other antibiotic agents
CPT/HCPCS: 36415; 80053; 82150; 83690; 85025; 96360; 99284; J7030

== ENCOUNTER 2019-10-29 01:52 | Emergency (ER) | payer MEDICAID ==
[~2019-10-29] VITALS: Ht 160 cm; Wt 59.9 kg
[2019-10-29 05:45] VITALS: BP 133/102
== END 2019-10-29 06:00 | disposition home or self-care (01) ==
LOC: ER 01:56
DX: S02.2XXA Fracture of nasal bones, initial encounter for closed fracture (principal); J45.909 Unspecified asthma, uncomplicated; F17.210 Nicotine dependence, cigarettes, uncomplicated; Z88.1 Allergy status to other antibiotic agents; Z88.5 Allergy status to narcotic agent; Z88.0 Allergy status to penicillin; Y04.2XXA Assault by strike against or bumped into by another person, initial encounter; Y93.89 Activity, other specified; Y92.89 Other specified places as the place of occurrence of the external cause; Y99.8 Other external cause status
CPT/HCPCS: 70450; 70486; 72125

== ENCOUNTER 2020-10-30 21:37 | Emergency (ER) | payer MEDICAID ==
[~2020-10-30] VITALS: Ht 162.6 cm; Wt 63.5 kg
[2020-10-30] MEDS ORDERED: NALOXONE HCL 1MG/ML 2ML SYRINGE ONE (21:58)
[2020-10-30] MEDS ORDERED: NALOXONE HCL 1MG/ML 2ML SYRINGE IV ONE ×4 (22:00→23:15)
[2020-10-30] MEDS ORDERED: NALOXONE HCL 0.4 MG/ML VIAL ONE (22:19)
[2020-10-30 23:16] LABS: Basophils # (auto) 0.1 10 ^3/uL (0-0.2); Basophils % (auto) 0.6 % (0.0-2.0); Eosinophils # (auto) 0.1 10 ^3/uL (0-0.8); Eosinophils % (auto) 0.8 % (0.0-7.0); Hematocrit 41.1 % (36.0-46.0); Hemoglobin 13.5 g/dL (12.2-16.2); Lymphocytes # (auto) 2.1 10 ^3/uL (0.4-5.4); Lymphocytes % (auto) 18.4 % (10.0-50.0); Mean Corpuscular Hemoglobin 28.3 pg (28.0-32.0); Mean Corpuscular Hgb Conc. 32.8 g/dL (32.0-36.0); Mean Corpuscular Volume 86.3 fL (80.0-100.0); Monocytes # (auto) 0.8 10 ^3/uL (0-1.3); Monocytes % (auto) 7.4 % (0.0-12.0); Neutrophils # (auto) 8.2 10 ^3/uL (1.6-8.6); Neutrophils % (auto) 72.8 % (37.0-80.0); Nucleated Red Blood Cells % 0.1 %; Red Blood Cells 4.76 10^6/uL (4.0-5.20); Red Cell Distribution Width 13.3 % (11.8-14.3); White Blood Cell 11.3 10^3/uL (4.4-10.8)
[2020-10-30 23:35] LABS: Urine Bacteria FEW /hpf (None Seen); Urine Blood Negative /uL (Negative); Urine WBC 1 /hpf (0 - 5)
[2020-10-31 00:42] LABS: Amphetamine Screen, Urine NEGATIVE (NEGATIVE)
[2020-10-31 00:50] LABS: Alcohol, Urine < 3.0 mg/dL (0-10); Barbiturate Scree,Urine NEGATIVE (NEGATIVE); Benzodiazephine Screen, Urine NEGATIVE (NEGATIVE); Cannabinoid Screen, Urine POSITIVE (NEGATIVE); Cocaine Screen, Urine NEGATIVE (NEGATIVE); Opiate Scree,Urine NEGATIVE (NEGATIVE); Phencyclidine Screen, Urine NEGATIVE (NEGATIVE)
[2020-10-31 00:52] LABS: Acetaminophen < 2.0 ug/mL (10-30)
[2020-10-31 02:32] LABS: Albumin 3.2 g/dL (3.4-5.0); Anion Gap 7 (5-15); BUN/Creatinine Ratio 26.3; Blood Alcohol < 3.0 mg/dL (0-5); Blood Urea Nitrogen 20 mg/dL (7-18); Calcium 8.1 mg/dL (8.5-10.1); Carbon Dioxide 24 mmol/L (21-32); Chloride 108 mmol/L (98-107); GFR African American 107 mL/min; GFR Non-African American 89 mL/min; Glucose 91 mg/dL (74-106); Potassium 4.3 mmol/L (3.5-5.1); Sodium 139 mmol/L (136-145)
[2020-10-31 02:35] LABS: Alanine Aminotransferase 30 U/L (13-56); Alkaline Phosphatase 74 U/L (45-117); Aspartate Aminotransferase 33 U/L (15-37); Bilirubin, Total 0.1 mg/dL (0.2-1.0)
[2020-10-31 06:11] LABS: Salicylate < 1.7 mg/dL (2.8-20.0)
[2020-10-31] MEDS ORDERED: SODIUM CHLORIDE 0.9% 1,000 ML IV ONE (06:30)
[2020-10-31] MEDS ORDERED: SODIUM CHLORIDE 0.9% 1,000 ML IV SCH (10:30)
[2020-10-31] MEDS ORDERED: ONDANSETRON HCL 4 MG/2 ML VIAL IV PRN (10:30)
[2020-10-31] MEDS ORDERED: MORPHINE SULFATE INJECTION 2 MG/ML SYRG IV PRN (10:30)
[2020-10-31] MEDS ORDERED: ACETAMINOPHEN 325 MG TAB PO PRN (10:30)
[2020-10-31 11:46] VITALS: BP 99/69
[2020-11-01] MEDS ORDERED: PANTOPRAZOLE 40 MG/10 ML VIAL INJ IV SCH (10:00)
[2020-11-01] MEDS ORDERED: ENOXAPARIN SOD 40 MG/0.4 ML SYRINGE SC SCH (10:00)
== END 2020-10-31 13:02 | disposition left against medical advice (07) ==
LOC: EDBD 21:37 → EDUNIT# 21:37 → ER 21:39
DX: T50.901A Poisoning by unspecified drugs, medicaments and biological substances, accidental (unintentional), initial encounter (principal); F31.9 Bipolar disorder, unspecified; F12.10 Cannabis abuse, uncomplicated; R41.82 Altered mental status, unspecified; J45.909 Unspecified asthma, uncomplicated; Z20.822 Contact with and (suspected) exposure to COVID-19; Z59.0 Homelessness; Z88.0 Allergy status to penicillin; Z88.1 Allergy status to other antibiotic agents; Y92.9 Unspecified place or not applicable
CPT/HCPCS: 36415; 70450; 71045; 72125; 80053; 80307; 80320; 80329; 81001; 81025; 82962; 83605; 83735; 85025; 87426; 93005; 96361; 96374; 96376; 99285; C9803; J2310; J7030; U0003

== ENCOUNTER 2022-04-27 12:05 | Emergency (ER) | payer MEDICAID ==
[~2022-04-27] VITALS: Ht 162.6 cm; Wt 82.0 kg
[2022-04-27] MEDS ORDERED: LOPERAMIDE HCL 2 MG CAP/TAB PO ONE (13:00)
[2022-04-27 14:11] LABS: Basophils # (auto) 0.1 10 ^3/uL (0-0.2); Basophils % (auto) 0.7 % (0.0-2.0); Eosinophils # (auto) 0 10 ^3/uL (0-0.8); Eosinophils % (auto) 0.4 % (0.0-7.0); Hemoglobin 14.2 g/dL (12.2-16.2); Lymphocytes # (auto) 2.1 10 ^3/uL (0.4-5.4); Lymphocytes % (auto) 18.2 % (10.0-50.0); Mean Corpuscular Hgb Conc. 32.2 g/dL (32.0-36.0); Mean Corpuscular Volume 83.7 fL (80.0-100.0); Monocytes # (auto) 0.7 10 ^3/uL (0-1.3); Neutrophils # (auto) 8.8 10 ^3/uL (1.6-8.6); Neutrophils % (auto) 74.7 % (37.0-80.0); Red Blood Cells 5.26 10^6/uL (4.0-5.20); Red Cell Distribution Width 14.5 % (11.8-14.3); White Blood Cell 11.8 10^3/uL (4.4-10.8)
[2022-04-27 14:13] LABS: Urine Bacteria NONE SEEN /hpf (None Seen); Urine Blood Negative /uL (Negative); Urine Specific Gravity 1.015 (1.001-1.035); Urine WBC 3 /hpf (0 - 5)
[2022-04-27 14:30] LABS: Albumin 3.5 g/dL (3.4-5.0); Calcium 8.5 mg/dL (8.5-10.1); Potassium 3.9 mmol/L (3.5-5.1)
[2022-04-27 14:34] LABS: BUN/Creatinine Ratio 14.1; Bilirubin, Total 0.3 mg/dL (0.2-1.0); Total Protein 7.3 g/dL (6.4-8.2)
[2022-04-27] MEDS ORDERED: METOCLOPRAMIDE HCL 5MG/ml INJ 2ml VIAL IV ONE (16:30)
[2022-04-27] MEDS ORDERED: SODIUM CHLORIDE 0.9% 1,000 ML IV ONE (16:30)
[2022-04-27] MEDS ORDERED: BISM262C44 PO (18:12)
[2022-04-27] MEDS ORDERED: METO-281 PO (18:12)
[2022-04-27] MEDS ORDERED: SACC1CAP3 PO (18:12)
[2022-04-27 18:20] VITALS: BP 128/68
== END 2022-04-27 18:31 | disposition home or self-care (01) ==
LOC: EDUNIT# 12:05 → EDBD 12:05 → ER 12:05
DX: K52.9 Noninfective gastroenteritis and colitis, unspecified (principal); F12.10 Cannabis abuse, uncomplicated; F41.1 Generalized anxiety disorder; F17.210 Nicotine dependence, cigarettes, uncomplicated; F15.10 Other stimulant abuse, uncomplicated; J44.9 Chronic obstructive pulmonary disease, unspecified; Z88.6 Allergy status to analgesic agent
CPT/HCPCS: 36415; 80053; 81001; 84484; 85025; 93005; 96361; 96374; 99284; J2765; J7030

== ENCOUNTER 2022-06-26 18:18 | Inpatient (IN) | payer MEDICAID ==
[~2022-06-26] VITALS: Ht 170.2 cm; Wt 72.1 kg
[~2022-06-26 18:18] MED LIST changes: -ACET-1079 PO; +BISM262C44 PO; -CARV6.2551 PO; -METH-562 PO; +METO-281 PO; -ONDA-143 PO; -PERCOT PO; -POTA10SO11 PO; +SACC1CAP3 PO
[2022-06-26] MEDS ORDERED: SODIUM CHLORIDE 0.9% 1,000 ML IVB ONE (18:30)
[2022-06-26] MEDS ORDERED: AZITHROMYCIN 500MG/ 250ML 250 ML IV ONE (18:30)
[2022-06-26] MEDS ORDERED: cefTRIAXone 1GM/50ML D5W 50 ML IV ONE (18:30)
[2022-06-26] MEDS ORDERED: NOREPINEPHRINE 8 MG/250ML KIT 250 ML IV ONE (18:33)
[2022-06-26] MEDS: NOREPINEPHRINE 8 MG/250ML KIT 250 ML IV SCH (18:40)
[2022-06-26] MEDS ORDERED: NOREPINEPHRINE 8 MG/250ML KIT 250 ML IV SCH (18:40)
[2022-06-26 18:48] LABS: Basophils # (auto) 0 10 ^3/uL (0-0.2); Basophils % (auto) 0.4 % (0.0-2.0); Eosinophils # (auto) 0 10 ^3/uL (0-0.8); Eosinophils % (auto) 0.1 % (0.0-7.0); Hemoglobin 14.3 g/dL (12.2-16.2); Lymphocytes # (auto) 0.6 10 ^3/uL (0.4-5.4); Lymphocytes % (auto) 16.8 % (10.0-50.0); Mean Corpuscular Hgb Conc. 31.9 g/dL (32.0-36.0); Mean Corpuscular Volume 84.7 fL (80.0-100.0); Monocytes # (auto) 0.3 10 ^3/uL (0-1.3); Monocytes % (auto) 8.4 % (0.0-12.0); Neutrophils # (auto) 2.7 10 ^3/uL (1.6-8.6); Neutrophils % (auto) 74.3 % (37.0-80.0); Nucleated Red Blood Cells % 0.1 %; Red Blood Cells 5.31 10^6/uL (4.0-5.20); Red Cell Distribution Width 15.5 % (11.8-14.3); White Blood Cell 3.7 10^3/uL (4.4-10.8)
[2022-06-26 19:04] LABS: Alanine Aminotransferase 19 U/L (13-56); Albumin 2.7 g/dL (3.4-5.0); Anion Gap 11 (5-15); Blood Alcohol < 3.0 mg/dL (0-5); Blood Urea Nitrogen 13 mg/dL (7-18); Calcium 8.2 mg/dL (8.5-10.1); Carbon Dioxide 19 mmol/L (21-32); Chloride 112 mmol/L (98-107); Glucose 121 mg/dL (74-106); Potassium 3.1 mmol/L (3.5-5.1); Sodium 142 mmol/L (136-145)
[2022-06-26 19:05] LABS: Acetaminophen < 2.0 ug/mL (10-30); Salicylate < 1.7 mg/dL (2.8-20.0)
[2022-06-26 19:07] LABS: Alkaline Phosphatase 76 U/L (45-117); Aspartate Aminotransferase 23 U/L (15-37); BUN/Creatinine Ratio 15.9; Bilirubin, Total 0.2 mg/dL (0.2-1.0); GFR African American 97 mL/min; GFR Non-African American 80 mL/min; Total Protein 5.9 g/dL (6.4-8.2)
[2022-06-26 19:10] LABS: Lactic Acid w/Reflex 2.4 mmol/L (0.4-2.0)
[2022-06-26] MEDS: MIDAZOLAM DRIP 50 mg/50mL 50 ML IV SCH (19:15)
[2022-06-26 19:26] LABS: Urine Bacteria FEW /hpf (None Seen); Urine Blood Negative /uL (Negative); Urine Mucus FEW (None Seen); Urine Specific Gravity 1.039 (1.001-1.035); Urine WBC 1 /hpf (0 - 5)
[2022-06-26 19:31] VITALS: BP 107/77
[2022-06-26 19:53] LABS: Alcohol, Urine < 3.0 mg/dL (0-10); Amphetamine Screen, Urine NEGATIVE (NEGATIVE); Barbiturate Scree,Urine NEGATIVE (NEGATIVE); Benzodiazephine Screen, Urine NEGATIVE (NEGATIVE); Cannabinoid Screen, Urine NEGATIVE (NEGATIVE); Cocaine Screen, Urine NEGATIVE (NEGATIVE); Opiate Scree,Urine NEGATIVE (NEGATIVE); Phencyclidine Screen, Urine NEGATIVE (NEGATIVE)
[2022-06-26 21:00] VITALS: BP 145/97
[2022-06-26] MEDS ORDERED: ONDANSETRON HCL 4 MG/2 ML VIAL IV PRN (21:15)
[2022-06-26 21:30] VITALS: BP 131/95
[2022-06-26] MEDS: CLINDAMYCIN 600MG IV 50 ML IV SCH (22:00)
[2022-06-26] MEDS: SODIUM CHLORIDE 0.9% 1,000 ML IV SCH (22:20)
[2022-06-26] MEDS ORDERED: NITROGLYCERIN 0.4 MG SL TAB SL PRN (23:00)
[2022-06-26] MEDS ORDERED: MORPHINE SULFATE INJ 2 MG/ml SYRG IV PRN (23:00)
[2022-06-26 23:01] VITALS: BP 145/97
[2022-06-27] VITALS (67 sets, daily range): BP systolic 138–172; BP diastolic 90–120
[2022-06-27] MEDS: MIDAZOLAM DRIP 50 mg/50mL 50 ML IV SCH ×3 (01:45→23:34)
[2022-06-27] MEDS: D5W/SOD CHLO 0.9% 1,000 ML IV SCH ×2 (02:19→11:30)
[2022-06-27] MEDS: CLINDAMYCIN 600MG IV 50 ML IV SCH ×3 (06:04→21:46)
[2022-06-27 06:53] LABS: White Blood Cell 4.1 10^3/uL (4.4-10.8)
[2022-06-27 06:56] LABS: Hematocrit 43.6 % (36.0-46.0); Mean Corpuscular Hemoglobin 26.1 pg (28.0-32.0); Mean Corpuscular Hgb Conc. 32.1 g/dL (32.0-36.0); Mean Corpuscular Volume 81.2 fL (80.0-100.0); Red Blood Cells 5.36 10^6/uL (4.0-5.20); Red Cell Distribution Width 15.1 % (11.8-14.3)
[2022-06-27 07:04] LABS: Albumin 2.5 g/dL (3.4-5.0); Calcium 7.9 mg/dL (8.5-10.1)
[2022-06-27 07:08] LABS: BUN/Creatinine Ratio 19.6; Bilirubin, Total 0.4 mg/dL (0.2-1.0); Total Protein 5.9 g/dL (6.4-8.2)
[2022-06-27] MEDS ORDERED: SODIUM BICARBONATE 8.4 % INJ 50ML VIAL IV ONE (07:15)
[2022-06-27 07:21] LABS: Basophils % (manual) 0 (0.0-2.0); Blast Cells 0; Eosinophils % (manual) 0 (0-7); Myelocytes % 0; Promyelocytes % 0; Reactive Lymphocytes 0
[2022-06-27] MEDS: SODIUM CHLORIDE 0.9% 1,000 ML IV SCH (09:01)
[2022-06-27 09:09] LABS: Band Neutrophils % (manual) 43; Lymphocytes % (manual) 19 (10.0-50.0); Metamyelocytes % 2; Monocytes % (manual) 8 (0-12)
[2022-06-27] MEDS: ENOXAPARIN SOD 40 MG/0.4 ML SYRINGE SC SCH (09:49)
[2022-06-27] MEDS: PANTOPRAZOLE 40 MG/10 ML VIAL INJ IV SCH (09:49)
[2022-06-27] MEDS: cefTRIAXone 1GM/50ML D5W 50 ML IV SCH (09:49)
[2022-06-27] MEDS: NOREPINEPHRINE 8 MG/250ML KIT 250 ML IV SCH (14:27)
[2022-06-27] MEDS: hydrALAZINE HCL 20 MG/ML VL IV PRN (17:57)
[2022-06-27] MEDS: METOPROLOL TARTRATE 25 MG TAB PO SCH (20:22)
[2022-06-27] MEDS ORDERED: METOPROLOL TARTRATE 25 MG TAB NG SCH (22:00)
[2022-06-28] VITALS (103 sets, daily range): BP systolic 122–174; BP diastolic 80–121
[2022-06-28] MEDS: CLINDAMYCIN 600MG IV 50 ML IV SCH ×3 (05:39→14:15)
[2022-06-28] MEDS: cefTRIAXone 1GM/50ML D5W 50 ML IV SCH (09:01)
[2022-06-28] MEDS: PANTOPRAZOLE 40 MG/10 ML VIAL INJ IV SCH (09:01)
[2022-06-28] MEDS: METOPROLOL TARTRATE 25 MG TAB PO SCH ×2 (09:02→22:19)
[2022-06-28] MEDS: ENOXAPARIN SOD 40 MG/0.4 ML SYRINGE SC SCH (09:02)
[2022-06-28] MEDS: D5W/SOD CHLO 0.9% 1,000 ML IV SCH ×2 (11:02→19:48)
[2022-06-28] MEDS: MIDAZOLAM DRIP 50 mg/50mL 50 ML IV SCH ×2 (12:18→18:08)
[2022-06-28] MEDS: diazePAM 5 MG TAB PO PRN (18:10)
[2022-06-28] MEDS ORDERED: cefTRIAXone 1GM/50ML D5W 50 ML IV ONE (18:15)
[2022-06-28] MEDS: NOREPINEPHRINE 8 MG/250ML KIT 250 ML IV SCH (18:40)
[2022-06-28] MEDS: hydrALAZINE HCL 20 MG/ML VL IV PRN (19:59)
[2022-06-28] MEDS: ACETAMINOPHEN 325 MG TAB PO PRN (23:05)
[2022-06-29] VITALS (103 sets, daily range): BP systolic 119–157; BP diastolic 22–109
[2022-06-29] MEDS: MIDAZOLAM DRIP 50 mg/50mL 50 ML IV SCH ×3 (00:10→17:11)
[2022-06-29] MEDS: diazePAM 5 MG TAB PO PRN ×2 (00:16→11:01)
[2022-06-29] MEDS: CLINDAMYCIN 600MG IV 50 ML IV SCH ×3 (05:30→21:45)
[2022-06-29] MEDS: D5W/SOD CHLO 0.9% 1,000 ML IV SCH ×2 (06:22→20:00)
[2022-06-29] MEDS: PANTOPRAZOLE 40 MG/10 ML VIAL INJ IV SCH (08:50)
[2022-06-29] MEDS: ENOXAPARIN SOD 40 MG/0.4 ML SYRINGE SC SCH (08:51)
[2022-06-29] MEDS: METOPROLOL TARTRATE 25 MG TAB PO SCH ×2 (08:51→21:44)
[2022-06-29] MEDS ORDERED: CEFTRIAXONE SODIUM 2 GM in D5W 5% 50 ML IV SCH (10:00)
[2022-06-29] MEDS: ACETAMINOPHEN 325 MG TAB PO PRN ×2 (11:01→23:00)
[2022-06-29 11:52] LABS: Basophils # (auto) 0.1 10 ^3/uL (0-0.2); Basophils % (auto) 0.6 % (0.0-2.0); Eosinophils # (auto) 0 10 ^3/uL (0-0.8); Eosinophils % (auto) 0.1 % (0.0-7.0)
[2022-06-29 11:54] LABS: Hematocrit 35.5 % (36.0-46.0); Hemoglobin 11.6 g/dL (12.2-16.2); Lymphocytes # (auto) 1.2 10 ^3/uL (0.4-5.4); Lymphocytes % (auto) 7.1 % (10.0-50.0); Mean Corpuscular Hemoglobin 26.4 pg (28.0-32.0); Mean Corpuscular Hgb Conc. 32.7 g/dL (32.0-36.0); Mean Corpuscular Volume 80.7 fL (80.0-100.0); Monocytes # (auto) 0.5 10 ^3/uL (0-1.3); Monocytes % (auto) 3.2 % (0.0-12.0); Neutrophils # (auto) 14.8 10 ^3/uL (1.6-8.6); Red Cell Distribution Width 15.7 % (11.8-14.3); White Blood Cell 16.6 10^3/uL (4.4-10.8)
[2022-06-29] MEDS: NOREPINEPHRINE 8 MG/250ML KIT 250 ML IV SCH (18:40)
[2022-06-30] VITALS (100 sets, daily range): BP systolic 112–160; BP diastolic 60–109
[2022-06-30] MEDS: MIDAZOLAM DRIP 50 mg/50mL 50 ML IV SCH ×3 (02:00→20:43)
[2022-06-30 04:57] LABS: Calcium 7.3 mg/dL (8.5-10.1)
[2022-06-30 05:04] LABS: Albumin 1.6 g/dL (3.4-5.0); BUN/Creatinine Ratio 27.3; Bilirubin, Total 0.2 mg/dL (0.2-1.0); Total Protein 4.2 g/dL (6.4-8.2)
[2022-06-30 05:24] LABS: Potassium 2.8 mmol/L (3.5-5.1)
[2022-06-30] MEDS ORDERED: POTASSIUM CHL 20MEQ/100ML 100 ML IV ONE (05:36)
[2022-06-30 05:41] LABS: INR 1.26 (0.9-1.15); Partial Thromboplastin Time 32.6 sec (24.6-33.4)
[2022-06-30] MEDS: POTASSIUM CHL 20MEQ/100ML 100 ML IV SCH ×4 (05:41→12:20)
[2022-06-30] MEDS: CLINDAMYCIN 600MG IV 50 ML IV SCH (05:47)
[2022-06-30] MEDS: PANTOPRAZOLE 40 MG/10 ML VIAL INJ IV SCH (10:43)
[2022-06-30] MEDS: METOPROLOL TARTRATE 25 MG TAB PO SCH ×2 (10:43→21:14)
[2022-06-30] MEDS: ENOXAPARIN SOD 40 MG/0.4 ML SYRINGE SC SCH (10:44)
[2022-06-30] MEDS: MAGNESIUM SULFATE 1GM/100ML 100 ML IV SCH ×3 (10:44→12:07)
[2022-06-30] MEDS: D5W/SOD CHLO 0.9% 1,000 ML IV SCH (10:52)
[2022-06-30] MEDS: CEFTRIAXONE SODIUM 2 GM in D5W 5% 50 ML IV SCH (12:05)
[2022-06-30] MEDS: diazePAM 5 MG TAB PO PRN ×2 (12:12→20:43)
[2022-06-30] MEDS: NOREPINEPHRINE 8 MG/250ML KIT 250 ML IV SCH (19:30)
[2022-07-01] VITALS (96 sets, daily range): BP systolic 99–202; BP diastolic 63–169
[2022-07-01] MEDS: D5W/SOD CHLO 0.9% 1,000 ML IV SCH ×2 (01:50→09:43)
[2022-07-01 04:53] LABS: Eosinophils # (auto) 0.1 10 ^3/uL (0-0.8); Lymphocytes # (auto) 1.3 10 ^3/uL (0.4-5.4); Mean Corpuscular Volume 79.5 fL (80.0-100.0)
[2022-07-01 04:58] LABS: Basophils # (auto) 0.1 10 ^3/uL (0-0.2); Basophils % (auto) 0.5 % (0.0-2.0); Eosinophils % (auto) 1.4 % (0.0-7.0); Hematocrit 30.1 % (36.0-46.0); Lymphocytes % (auto) 13.8 % (10.0-50.0); Mean Corpuscular Hemoglobin 26.5 pg (28.0-32.0); Mean Corpuscular Hgb Conc. 33.3 g/dL (32.0-36.0); Monocytes # (auto) 0.8 10 ^3/uL (0-1.3); Monocytes % (auto) 8.2 % (0.0-12.0); Neutrophils # (auto) 7.1 10 ^3/uL (1.6-8.6); Neutrophils % (auto) 76.1 % (37.0-80.0); Red Blood Cells 3.78 10^6/uL (4.0-5.20); Red Cell Distribution Width 15.9 % (11.8-14.3); White Blood Cell 9.4 10^3/uL (4.4-10.8)
[2022-07-01 05:15] LABS: BUN/Creatinine Ratio 26.8; Calcium 7.7 mg/dL (8.5-10.1); Potassium 3.5 mmol/L (3.5-5.1)
[2022-07-01] MEDS: PANTOPRAZOLE 40 MG/10 ML VIAL INJ IV SCH (09:33)
[2022-07-01] MEDS: ENOXAPARIN SOD 40 MG/0.4 ML SYRINGE SC SCH (09:33)
[2022-07-01] MEDS: METOPROLOL TARTRATE 25 MG TAB PO SCH ×2 (09:34→21:28)
[2022-07-01] MEDS: CEFTRIAXONE SODIUM 2 GM in D5W 5% 50 ML IV SCH (09:35)
[2022-07-01] MEDS ORDERED: EPINEPHrine HCL 0.5 ML NEB ONE (13:36)
[2022-07-01] MEDS ORDERED: DexAMETHasone SOD PHOS 4 MG/1ML SDV INJ ONE (13:43)
[2022-07-01] MEDS ORDERED: EPINEPHrine HCL 0.5 ML NEB NEB ONE (14:00)
[2022-07-01] MEDS ORDERED: DexAMETHasone SOD PHOS 4 MG/1ML SDV INJ IV ONE (14:00)
[2022-07-01] MEDS: NOREPINEPHRINE 8 MG/250ML KIT 250 ML IV SCH (19:30)
[2022-07-01] MEDS: diazePAM 5 MG TAB PO PRN (21:28)
[2022-07-02] VITALS (15 sets, daily range): BP systolic 116–143; BP diastolic 68–93
[2022-07-02] MEDS: D5W/SOD CHLO 0.9% 1,000 ML IV SCH ×3 (02:29→17:21)
[2022-07-02 05:03] LABS: BUN/Creatinine Ratio 17.1; Calcium 7.9 mg/dL (8.5-10.1); Magnesium 1.9 mg/dL (1.6-2.6); Potassium 3.7 mmol/L (3.5-5.1)
[2022-07-02] MEDS: METOPROLOL TARTRATE 25 MG TAB PO SCH ×2 (10:00→21:39)
[2022-07-02] MEDS: ENOXAPARIN SOD 40 MG/0.4 ML SYRINGE SC SCH (10:00)
[2022-07-02] MEDS: PANTOPRAZOLE 40 MG/10 ML VIAL INJ IV SCH (10:00)
[2022-07-02] MEDS: CEFTRIAXONE SODIUM 2 GM in D5W 5% 50 ML IV SCH (10:00)
[2022-07-02] MEDS: ACETAMINOPHEN 325 MG TAB PO PRN (11:12)
[2022-07-02] MEDS: diazePAM 5 MG TAB PO PRN (11:12)
[2022-07-03 05:30] VITALS: BP 144/96
[2022-07-03 05:36] LABS: Basophils # (auto) 0 10 ^3/uL (0-0.2); Basophils % (auto) 0.2 % (0.0-2.0); Eosinophils # (auto) 0.1 10 ^3/uL (0-0.8); Eosinophils % (auto) 1.1 % (0.0-7.0); Hematocrit 28.3 % (36.0-46.0); Hemoglobin 9.5 g/dL (12.2-16.2); Lymphocytes # (auto) 1.4 10 ^3/uL (0.4-5.4); Lymphocytes % (auto) 15.5 % (10.0-50.0); Mean Corpuscular Hemoglobin 26.8 pg (28.0-32.0); Mean Corpuscular Hgb Conc. 33.5 g/dL (32.0-36.0); Mean Corpuscular Volume 79.9 fL (80.0-100.0); Monocytes # (auto) 0.7 10 ^3/uL (0-1.3); Monocytes % (auto) 7.7 % (0.0-12.0); Neutrophils # (auto) 6.9 10 ^3/uL (1.6-8.6); Neutrophils % (auto) 75.5 % (37.0-80.0); Nucleated Red Blood Cells % 0.1 %; Red Blood Cells 3.54 10^6/uL (4.0-5.20); Red Cell Distribution Width 15.6 % (11.8-14.3); White Blood Cell 9.1 10^3/uL (4.4-10.8)
[2022-07-03 05:48] LABS: Magnesium 1.5 mg/dL (1.6-2.6); Potassium 3.2 mmol/L (3.5-5.1)
[2022-07-03 09:00] VITALS: BP 142/97
[2022-07-03] MEDS: D5W/SOD CHLO 0.9% 1,000 ML IV SCH ×2 (10:28→20:28)
[2022-07-03] MEDS: PANTOPRAZOLE 40 MG/10 ML VIAL INJ IV SCH (10:28)
[2022-07-03] MEDS: CEFTRIAXONE SODIUM 2 GM in D5W 5% 50 ML IV SCH (10:28)
[2022-07-03] MEDS: ENOXAPARIN SOD 40 MG/0.4 ML SYRINGE SC SCH (10:30)
[2022-07-03] MEDS: METOPROLOL TARTRATE 25 MG TAB PO SCH ×2 (10:30→22:03)
[2022-07-03] MEDS ORDERED: MAGNESIUM OXIDE 400 MG TAB PO ONE (11:00)
[2022-07-03] MEDS ORDERED: POTASSIUM EFFERVESENT TAB 25 MEQ PO ONE (11:45)
[2022-07-03] MEDS: MAGNESIUM SULFATE 1GM/100ML 100 ML IV SCH ×2 (12:13→13:34)
[2022-07-03 13:00] VITALS: BP 120/80
[2022-07-03 16:42] VITALS: BP 139/93
[2022-07-03 21:58] VITALS: BP 137/92
[2022-07-03] MEDS: diazePAM 5 MG TAB PO PRN (22:08)
[2022-07-04 05:17] VITALS: BP 117/47
[2022-07-04 09:00] VITALS: BP 127/70
[2022-07-04] MEDS ORDERED: CITALOPRAM HYDROBR 20 MG TAB PO SCH (10:00)
[2022-07-04] MEDS: ENOXAPARIN SOD 40 MG/0.4 ML SYRINGE SC SCH (10:57)
[2022-07-04] MEDS: METOPROLOL TARTRATE 25 MG TAB PO SCH (10:58)
[2022-07-04] MEDS: CEFTRIAXONE SODIUM 2 GM in D5W 5% 50 ML IV SCH (11:24)
[2022-07-04] MEDS: PANTOPRAZOLE 40 MG/10 ML VIAL INJ IV SCH (11:24)
[2022-07-04] MEDS: D5W/SOD CHLO 0.9% 1,000 ML IV SCH (11:25)
[2022-07-04 13:00] VITALS: BP 138/88
[2022-07-04] MEDS ORDERED: CITA-77 PO (13:02)
[2022-07-04] MEDS ORDERED: LEVO500T31 PO (13:02)
[2022-07-04] MEDS ORDERED: MET25T PO (13:02)
[2022-07-04 15:40] VITALS: BP 138/88
[2022-07-04 17:00] VITALS: BP 142/95
== END 2022-07-04 17:45 | disposition home or self-care (01) | DRG 812 ==
LOC: EDBD 18:18 → EDUNIT# 18:18 → ER 18:19 → TELE 22:47 → ICU WEST 06-27 09:48 → TELE-CENTR 07-02 16:49
PROVIDERS: ADMIT Nurse Practitioner; ATTEND Internal Medicine
PROC: 5A1955Z Respiratory Ventilation, Greater than 96 Consecutive Hours (ICD-10-PCS; principal; 2022-06-26)
PROC: 0BH17EZ Insertion of Endotracheal Airway into Trachea, Via Natural or Artificial Opening (ICD-10-PCS; 2022-06-26)
PROC: 05H933Z Insertion of Infusion Device into Right Brachial Vein, Percutaneous Approach (ICD-10-PCS; 2022-06-28)
PROC: B54MZZA Ultrasonography of Right Upper Extremity Veins, Guidance (ICD-10-PCS; 2022-06-28)
PROC: 5A09357 Assistance with Respiratory Ventilation, Less than 24 Consecutive Hours, Continuous Positive Airway Pressure (ICD-10-PCS; 2022-07-01)
DX: T40.601A Poisoning by unspecified narcotics, accidental (unintentional), initial encounter (principal); J96.01 Acute respiratory failure with hypoxia; J69.0 Pneumonitis due to inhalation of food and vomit; G92.8 Other toxic encephalopathy; J44.9 Chronic obstructive pulmonary disease, unspecified; E43 Unspecified severe protein-calorie malnutrition; J98.11 Atelectasis; I11.0 Hypertensive heart disease with heart failure; T88.4XXA Failed or difficult intubation, initial encounter; F41.1 Generalized anxiety disorder; Z62.810 Personal history of physical and sexual abuse in childhood; F11.10 Opioid abuse, uncomplicated; G47.00 Insomnia, unspecified; Y83.8 Other surgical procedures as the cause of abnormal reaction of the patient, or of later complication, without mention of misadventure at the time of the procedure; F15.90 Other stimulant use, unspecified, uncomplicated; F17.210 Nicotine dependence, cigarettes, uncomplicated; F43.10 Post-traumatic stress disorder, unspecified; F60.3 Borderline personality disorder; Z88.1 Allergy status to other antibiotic agents; Z88.5 Allergy status to narcotic agent; Z88.0 Allergy status to penicillin; Z87.11 Personal history of peptic ulcer disease; Z68.25 Body mass index [BMI] 25.0-25.9, adult; Z91.51 Personal history of suicidal behavior; Z91.52 Personal history of nonsuicidal self-harm; Z65.3 Problems related to other legal circumstances; Y92.89 Other specified places as the place of occurrence of the external cause
CPT/HCPCS: 31500; 36415; 36600; 70450; 71045; 80048; 80053; 80307; 80320; 80329; 81001; 82550; 82553; 82805; 83605; 83735; 84132; 84484; 85007; 85025; 85027; 85610; 85730; 87040; 87070; 87077; 87081; 87186; 87205; 87426; 93005; 93306; 94002; 94003; 94640; 94660; 95819; 96361; 96365; 96367; 97163; 99291; A4565; C9113; G0378; J0696; J1100; J2250; J3480; J3490; J7042; J7060

== ENCOUNTER 2022-07-05 12:45 | Inpatient (IN) | payer MEDICAID ==
[~2022-07-05] VITALS: Ht 152.4 cm; Wt 63.3 kg
[~2022-07-05 12:45] MED LIST changes: +CITA-77 PO; +LEVO500T31 PO; +MET25T PO
[2022-07-05 15:56] LABS: Urine Amorphous Crystal FEW /hpf (None Seen); Urine Bacteria FEW /hpf (None Seen); Urine Blood Negative /uL (Negative); Urine Specific Gravity 1.009 (1.001-1.035); Urine WBC 4 /hpf (0 - 5)
[2022-07-05 16:03] LABS: Basophils # (auto) 0 10 ^3/uL (0-0.2); Basophils % (auto) 0.6 % (0.0-2.0); Eosinophils # (auto) 0.1 10 ^3/uL (0-0.8); Eosinophils % (auto) 1.2 % (0.0-7.0); Hematocrit 36.2 % (36.0-46.0); Hemoglobin 11.7 g/dL (12.2-16.2); Lymphocytes # (auto) 1.6 10 ^3/uL (0.4-5.4); Lymphocytes % (auto) 23.9 % (10.0-50.0); Mean Corpuscular Hemoglobin 26.1 pg (28.0-32.0); Mean Corpuscular Hgb Conc. 32.4 g/dL (32.0-36.0); Mean Corpuscular Volume 80.4 fL (80.0-100.0); Monocytes # (auto) 0.5 10 ^3/uL (0-1.3); Monocytes % (auto) 7.5 % (0.0-12.0); Neutrophils # (auto) 4.5 10 ^3/uL (1.6-8.6); Neutrophils % (auto) 66.8 % (37.0-80.0); Nucleated Red Blood Cells % 0.1 %; Red Blood Cells 4.51 10^6/uL (4.0-5.20); White Blood Cell 6.7 10^3/uL (4.4-10.8)
[2022-07-05] MEDS ORDERED: ONDANSETRON ODT 4 MG TAB PO ONE (16:15)
[2022-07-05] MEDS ORDERED: HYOSCYAMINE SULF 0.125 MG ODT TAB PO ONE (16:15)
[2022-07-05 16:33] LABS: Albumin 2.6 g/dL (3.4-5.0); BUN/Creatinine Ratio 11.1; Bilirubin, Total 0.2 mg/dL (0.2-1.0); Potassium 4.3 mmol/L (3.5-5.1); Total Protein 6.6 g/dL (6.4-8.2)
[2022-07-05] MEDS ORDERED: CIPROFLOXACIN 400MG/200ML 200 ML IV ONE (17:15)
[2022-07-05] MEDS ORDERED: metroNIDAZOLE 500MG/100ML 100 ML IV ONE (17:15)
[2022-07-05] MEDS ORDERED: KETOROLAC TROMETH 30 MG/ML 1ML VIAL IV ONE (21:30)
[2022-07-05] MEDS ORDERED: HYDROcodone-ACET 5/325MG TAB PO PRN (22:00)
[2022-07-05] MEDS: SODIUM CHLORIDE 0.9% 1,000 ML IV SCH (22:25)
[2022-07-05] MEDS: PANTOPRAZOLE 40 MG/10 ML VIAL INJ IV SCH (22:30)
[2022-07-05] MEDS: METOPROLOL TARTRATE 50 MG TAB PO SCH (22:30)
[2022-07-06] MEDS: ONDANSETRON HCL 4 MG/2 ML VIAL IV PRN ×3 (00:42→23:16)
[2022-07-06] MEDS: MORPHINE SULFATE INJ 2 MG/ml SYRG IV PRN ×5 (00:43→23:18)
[2022-07-06 04:44] LABS: Hematocrit 31.7 % (36.0-46.0); Hemoglobin 10.4 g/dL (12.2-16.2); White Blood Cell 7.1 10^3/uL (4.4-10.8)
[2022-07-06 04:45] LABS: Basophils # (auto) 0 10 ^3/uL (0-0.2); Basophils % (auto) 0.7 % (0.0-2.0); Eosinophils # (auto) 0.2 10 ^3/uL (0-0.8); Eosinophils % (auto) 2.3 % (0.0-7.0); Lymphocytes # (auto) 2.3 10 ^3/uL (0.4-5.4); Lymphocytes % (auto) 32.2 % (10.0-50.0); Mean Corpuscular Hemoglobin 26.2 pg (28.0-32.0); Mean Corpuscular Hgb Conc. 32.9 g/dL (32.0-36.0); Mean Corpuscular Volume 79.7 fL (80.0-100.0); Monocytes # (auto) 0.7 10 ^3/uL (0-1.3); Monocytes % (auto) 9.8 % (0.0-12.0); Neutrophils # (auto) 3.9 10 ^3/uL (1.6-8.6); Nucleated Red Blood Cells % 0.7 %; Red Blood Cells 3.98 10^6/uL (4.0-5.20); Red Cell Distribution Width 15.8 % (11.8-14.3)
[2022-07-06 05:16] LABS: Albumin 2.2 g/dL (3.4-5.0); BUN/Creatinine Ratio 6.6; Bilirubin, Total 0.3 mg/dL (0.2-1.0); Calcium 8.7 mg/dL (8.5-10.1); Potassium 3.7 mmol/L (3.5-5.1); Total Protein 6.3 g/dL (6.4-8.2)
[2022-07-06] MEDS: SODIUM CHLORIDE 0.9% 1,000 ML IV SCH (09:46)
[2022-07-06] MEDS: PANTOPRAZOLE 40 MG/10 ML VIAL INJ IV SCH (10:55)
[2022-07-06] MEDS: METOPROLOL TARTRATE 50 MG TAB PO SCH ×2 (11:10→21:50)
[2022-07-06 11:50] LABS: Cholesterol 119 mg/dL (< 200); HDL Cholesterol 34 mg/dL (40-59); LDL Cholesterol 78 mg/dL (< 100); Triglycerides 123 mg/dL (< 150)
[2022-07-06 13:00] VITALS: BP 139/97
[2022-07-06 17:00] VITALS: BP 145/87
[2022-07-06 22:00] VITALS: BP 146/94
[2022-07-06 23:16] LABS: Alcohol, Urine < 3.0 mg/dL (0-10); Barbiturate Scree,Urine NEGATIVE (NEGATIVE); Benzodiazephine Screen, Urine POSITIVE (NEGATIVE); Cannabinoid Screen, Urine NEGATIVE (NEGATIVE); Cocaine Screen, Urine NEGATIVE (NEGATIVE); Opiate Scree,Urine NEGATIVE (NEGATIVE); Phencyclidine Screen, Urine NEGATIVE (NEGATIVE)
[2022-07-06 23:27] LABS: Amphetamine Screen, Urine NEGATIVE (NEGATIVE)
[2022-07-07] MEDS: SODIUM CHLORIDE 0.9% 1,000 ML IV SCH ×3 (01:59→20:00)
[2022-07-07] MEDS: ACETAMINOPHEN 325 MG TAB PO PRN (02:15)
[2022-07-07] MEDS: MORPHINE SULFATE INJ 2 MG/ml SYRG IV PRN ×3 (04:35→20:00)
[2022-07-07 05:00] VITALS: BP 138/85
[2022-07-07 06:46] LABS: Eosinophils # (auto) 0.2 10 ^3/uL (0-0.8); Monocytes # (auto) 0.5 10 ^3/uL (0-1.3); Neutrophils # (auto) 4.5 10 ^3/uL (1.6-8.6); Nucleated Red Blood Cells % 0.1 %; White Blood Cell 7.4 10^3/uL (4.4-10.8)
[2022-07-07 06:48] LABS: Basophils # (auto) 0.1 10 ^3/uL (0-0.2); Basophils % (auto) 0.7 % (0.0-2.0); Eosinophils % (auto) 3.2 % (0.0-7.0); Hematocrit 32.3 % (36.0-46.0); Hemoglobin 10.5 g/dL (12.2-16.2); Lymphocytes % (auto) 27.5 % (10.0-50.0); Mean Corpuscular Hemoglobin 26.3 pg (28.0-32.0); Mean Corpuscular Hgb Conc. 32.6 g/dL (32.0-36.0); Mean Corpuscular Volume 80.5 fL (80.0-100.0); Monocytes % (auto) 7.3 % (0.0-12.0); Neutrophils % (auto) 61.3 % (37.0-80.0); Red Blood Cells 4.01 10^6/uL (4.0-5.20); Red Cell Distribution Width 15.7 % (11.8-14.3)
[2022-07-07 07:10] LABS: BUN/Creatinine Ratio 3.1; Calcium 8.5 mg/dL (8.5-10.1); Potassium 4.3 mmol/L (3.5-5.1)
[2022-07-07 08:30] VITALS: BP 134/90
[2022-07-07] MEDS: PANTOPRAZOLE 40 MG/10 ML VIAL INJ IV SCH (10:26)
[2022-07-07] MEDS: METOPROLOL TARTRATE 50 MG TAB PO SCH ×2 (10:27→21:57)
[2022-07-07] MEDS ORDERED: FLUCONAZOLE 100 MG TAB PO ONE (11:15)
[2022-07-07 13:00] VITALS: BP 135/91
[2022-07-07 17:00] VITALS: BP 136/88
[2022-07-07] MEDS: ONDANSETRON HCL 4 MG/2 ML VIAL IV PRN (18:30)
[2022-07-07 22:00] VITALS: BP 138/107
[2022-07-08] VITALS (7 sets, daily range): BP systolic 129–144; BP diastolic 72–90
[2022-07-08] MEDS: MORPHINE SULFATE INJ 2 MG/ml SYRG IV PRN ×7 (00:58→23:59)
[2022-07-08] MEDS: ONDANSETRON HCL 4 MG/2 ML VIAL IV PRN (05:46)
[2022-07-08 08:10] LABS: Basophils # (auto) 0.1 10 ^3/uL (0-0.2); Eosinophils # (auto) 0.3 10 ^3/uL (0-0.8); Monocytes # (auto) 0.7 10 ^3/uL (0-1.3); Neutrophils # (auto) 4.2 10 ^3/uL (1.6-8.6); Nucleated Red Blood Cells % 0.2 %
[2022-07-08 08:13] LABS: Basophils % (auto) 0.9 % (0.0-2.0); Eosinophils % (auto) 3.5 % (0.0-7.0); Hemoglobin 11.1 g/dL (12.2-16.2); Lymphocytes # (auto) 2.3 10 ^3/uL (0.4-5.4); Lymphocytes % (auto) 30.9 % (10.0-50.0); Mean Corpuscular Hemoglobin 25.9 pg (28.0-32.0); Mean Corpuscular Hgb Conc. 31.8 g/dL (32.0-36.0); Mean Corpuscular Volume 81.6 fL (80.0-100.0); Neutrophils % (auto) 55.7 % (37.0-80.0); Red Blood Cells 4.29 10^6/uL (4.0-5.20); Red Cell Distribution Width 15.8 % (11.8-14.3); White Blood Cell 7.6 10^3/uL (4.4-10.8)
[2022-07-08 08:33] LABS: Anion Gap 6 (5-15); Blood Urea Nitrogen < 1 mg/dL (7-18); Calcium 8.7 mg/dL (8.5-10.1); Carbon Dioxide 28 mmol/L (21-32); Chloride 109 mmol/L (98-107); GFR African American 172 mL/min; GFR Non-African American 142 mL/min; Glucose 69 mg/dL (74-106); Lipase 433 U/L (73-393); Sodium 143 mmol/L (136-145)
[2022-07-08] MEDS: SODIUM CHLORIDE 0.9% 1,000 ML IV SCH ×2 (08:50→20:51)
[2022-07-08] MEDS: PANTOPRAZOLE 40 MG/10 ML VIAL INJ IV SCH (09:39)
[2022-07-08] MEDS: METOPROLOL TARTRATE 50 MG TAB PO SCH ×2 (09:39→22:13)
[2022-07-08] MEDS: METOCLOPRAMIDE HCL 5MG/ml INJ 2ml VIAL IV PRN ×2 (13:53→22:24)
[2022-07-08] MEDS ORDERED: LORazepam 0.5 MG TAB PO SCH (22:00)
[2022-07-09] VITALS (7 sets, daily range): BP systolic 118–154; BP diastolic 56–106
[2022-07-09] MEDS: MORPHINE SULFATE INJ 2 MG/ml SYRG IV PRN ×5 (03:59→21:13)
[2022-07-09 06:40] LABS: BUN/Creatinine Ratio 4.3; Calcium 8.6 mg/dL (8.5-10.1); Potassium 3.9 mmol/L (3.5-5.1)
[2022-07-09] MEDS: METOCLOPRAMIDE HCL 5MG/ml INJ 2ml VIAL IV PRN (07:56)
[2022-07-09] MEDS: SODIUM CHLORIDE 0.9% 1,000 ML IV SCH (08:22)
[2022-07-09] MEDS: PANTOPRAZOLE 40 MG/10 ML VIAL INJ IV SCH (10:08)
[2022-07-09] MEDS: METOPROLOL TARTRATE 50 MG TAB PO SCH ×2 (10:09→21:59)
[2022-07-09] MEDS ORDERED: DOCUSATE SOD 100 MG CAP PO ONE (12:15)
[2022-07-09] MEDS ORDERED: LACTULOSE 20Gm/30ML SOLN PO ONE (12:15)
[2022-07-09] MEDS ORDERED: hydrALAZINE HCL 20 MG/ML VL IV PRN (12:30)
[2022-07-09] MEDS: ONDANSETRON HCL 4 MG/2 ML VIAL IV PRN ×3 (12:51→21:12)
[2022-07-09] MEDS: DOCUSATE SOD 100 MG CAP PO SCH (21:58)
[2022-07-09] MEDS: LACTULOSE 20Gm/30ML SOLN PO SCH (21:58)
[2022-07-10] VITALS (7 sets, daily range): BP systolic 117–127; BP diastolic 67–89
[2022-07-10] MEDS: MORPHINE SULFATE INJ 2 MG/ml SYRG IV PRN ×5 (01:15→18:28)
[2022-07-10] MEDS: ACETAMINOPHEN 325 MG TAB PO PRN ×2 (06:26→11:06)
[2022-07-10] MEDS: ONDANSETRON HCL 4 MG/2 ML VIAL IV PRN ×4 (08:36→17:27)
[2022-07-10] MEDS: LACTULOSE 20Gm/30ML SOLN PO SCH ×2 (10:00→21:20)
[2022-07-10] MEDS: DOCUSATE SOD 100 MG CAP PO SCH ×2 (10:00→21:22)
[2022-07-10] MEDS: PANTOPRAZOLE 40 MG/10 ML VIAL INJ IV SCH (10:55)
[2022-07-10] MEDS: METOPROLOL TARTRATE 50 MG TAB PO SCH ×2 (10:56→21:24)
[2022-07-10 11:18] LABS: Basophils # (auto) 0.1 10 ^3/uL (0-0.2); Basophils % (auto) 0.8 % (0.0-2.0); Eosinophils # (auto) 0.2 10 ^3/uL (0-0.8); Eosinophils % (auto) 2.5 % (0.0-7.0); Hematocrit 40.1 % (36.0-46.0); Hemoglobin 12.9 g/dL (12.2-16.2); Lymphocytes # (auto) 1.7 10 ^3/uL (0.4-5.4); Lymphocytes % (auto) 20.8 % (10.0-50.0); Mean Corpuscular Hgb Conc. 32.1 g/dL (32.0-36.0); Monocytes # (auto) 0.6 10 ^3/uL (0-1.3); Monocytes % (auto) 7.8 % (0.0-12.0); Neutrophils # (auto) 5.5 10 ^3/uL (1.6-8.6); Neutrophils % (auto) 68.1 % (37.0-80.0); Nucleated Red Blood Cells % 0.1 %; Red Blood Cells 4.95 10^6/uL (4.0-5.20); Red Cell Distribution Width 15.9 % (11.8-14.3)
[2022-07-10 11:45] LABS: Albumin 2.7 g/dL (3.4-5.0); Calcium 9.6 mg/dL (8.5-10.1); Potassium 4.9 mmol/L (3.5-5.1)
[2022-07-10 11:48] LABS: BUN/Creatinine Ratio 3.7; Bilirubin, Total 0.3 mg/dL (0.2-1.0)
[2022-07-10] MEDS ORDERED: cefTRIAXone 1GM/50ML D5W 50 ML IV ONE (16:45)
[2022-07-10] MEDS: D5W/SOD CHLO 0.9% 1,000 ML IV SCH (18:45)
[2022-07-11] VITALS (7 sets, daily range): BP systolic 99–128; BP diastolic 69–83
[2022-07-11] MEDS: MORPHINE SULFATE INJ 2 MG/ml SYRG IV PRN ×4 (04:34→22:37)
[2022-07-11] MEDS: D5W/SOD CHLO 0.9% 1,000 ML IV SCH ×2 (05:12→13:02)
[2022-07-11 06:30] LABS: Basophils # (auto) 0.1 10 ^3/uL (0-0.2); Basophils % (auto) 0.8 % (0.0-2.0); Eosinophils # (auto) 0.3 10 ^3/uL (0-0.8); Eosinophils % (auto) 3.4 % (0.0-7.0); Hemoglobin 12.4 g/dL (12.2-16.2); Mean Corpuscular Volume 80.3 fL (80.0-100.0); Monocytes # (auto) 0.7 10 ^3/uL (0-1.3); Neutrophils # (auto) 4.6 10 ^3/uL (1.6-8.6); Neutrophils % (auto) 61.6 % (37.0-80.0); Nucleated Red Blood Cells % 0.1 %; Red Cell Distribution Width 15.8 % (11.8-14.3); White Blood Cell 7.5 10^3/uL (4.4-10.8)
[2022-07-11 06:34] LABS: Hematocrit 37.5 % (36.0-46.0); Lymphocytes # (auto) 1.8 10 ^3/uL (0.4-5.4); Lymphocytes % (auto) 24.4 % (10.0-50.0); Mean Corpuscular Hemoglobin 26.7 pg (28.0-32.0); Mean Corpuscular Hgb Conc. 33.2 g/dL (32.0-36.0); Monocytes % (auto) 9.8 % (0.0-12.0); Red Blood Cells 4.66 10^6/uL (4.0-5.20)
[2022-07-11 07:14] LABS: Albumin 2.4 g/dL (3.4-5.0); Calcium 9.2 mg/dL (8.5-10.1); Potassium 4.7 mmol/L (3.5-5.1)
[2022-07-11 07:18] LABS: BUN/Creatinine Ratio 8.8; Bilirubin, Total 0.4 mg/dL (0.2-1.0); Total Protein 6.5 g/dL (6.4-8.2)
[2022-07-11] MEDS ORDERED: OMNIPAQUE ORAL SOLN 500ml 12mg/ml PO ONE (09:19)
[2022-07-11] MEDS ORDERED: IOHEXOL 300 MG/ML 100ML BOTTLE IJ ONE (09:19)
[2022-07-11] MEDS: LACTULOSE 20Gm/30ML SOLN PO SCH (10:00)
[2022-07-11] MEDS: METOPROLOL TARTRATE 50 MG TAB PO SCH ×2 (10:19→21:28)
[2022-07-11] MEDS: cefTRIAXone 1GM/50ML D5W 50 ML IV SCH (10:19)
[2022-07-11] MEDS: DOCUSATE SOD 100 MG CAP PO SCH ×2 (10:19→21:27)
[2022-07-11] MEDS: PANTOPRAZOLE 40 MG/10 ML VIAL INJ IV SCH (10:21)
[2022-07-11] MEDS: NICOTINE 21MG/24 HR TOPICAL PATCH TD SCH (13:19)
[2022-07-11] MEDS: ONDANSETRON HCL 4 MG/2 ML VIAL IV PRN (15:26)
[2022-07-12] MEDS: D5W/SOD CHLO 0.9% 1,000 ML IV SCH (00:45)
[2022-07-12 05:00] VITALS: BP 133/68
[2022-07-12] MEDS: MORPHINE SULFATE INJ 2 MG/ml SYRG IV PRN ×2 (05:26→09:48)
[2022-07-12 06:06] LABS: Basophils # (auto) 0.1 10 ^3/uL (0-0.2); Eosinophils # (auto) 0.2 10 ^3/uL (0-0.8); Monocytes # (auto) 0.7 10 ^3/uL (0-1.3)
[2022-07-12 06:08] LABS: Basophils % (auto) 0.8 % (0.0-2.0); Eosinophils % (auto) 2.5 % (0.0-7.0); Hematocrit 38.7 % (36.0-46.0); Hemoglobin 12.6 g/dL (12.2-16.2); Lymphocytes # (auto) 1.8 10 ^3/uL (0.4-5.4); Lymphocytes % (auto) 28.9 % (10.0-50.0); Mean Corpuscular Hemoglobin 26.2 pg (28.0-32.0); Mean Corpuscular Hgb Conc. 32.5 g/dL (32.0-36.0); Mean Corpuscular Volume 80.5 fL (80.0-100.0); Monocytes % (auto) 11.3 % (0.0-12.0); Neutrophils # (auto) 3.6 10 ^3/uL (1.6-8.6); Neutrophils % (auto) 56.5 % (37.0-80.0); Nucleated Red Blood Cells % 0.1 %; Red Cell Distribution Width 15.9 % (11.8-14.3); White Blood Cell 6.3 10^3/uL (4.4-10.8)
[2022-07-12 06:22] LABS: BUN/Creatinine Ratio 8.6; Calcium 8.9 mg/dL (8.5-10.1); Potassium 4.1 mmol/L (3.5-5.1)
[2022-07-12] MEDS: ONDANSETRON HCL 4 MG/2 ML VIAL IV PRN ×2 (06:41→11:46)
[2022-07-12 08:00] VITALS: BP 107/81
[2022-07-12 09:00] VITALS: BP 107/81
[2022-07-12] MEDS: PANTOPRAZOLE 40 MG/10 ML VIAL INJ IV SCH (09:45)
[2022-07-12] MEDS: cefTRIAXone 1GM/50ML D5W 50 ML IV SCH (09:45)
[2022-07-12] MEDS: DOCUSATE SOD 100 MG CAP PO SCH (09:46)
[2022-07-12] MEDS: NICOTINE 21MG/24 HR TOPICAL PATCH TD SCH (09:47)
[2022-07-12] MEDS: METOPROLOL TARTRATE 50 MG TAB PO SCH (09:48)
[2022-07-12] MEDS ORDERED: PANT40TA2 PO (11:05)
[2022-07-12 12:45] VITALS: BP 108/78
[2022-07-12 13:00] VITALS: BP 108/78
== END 2022-07-12 14:10 | disposition home or self-care (01) | DRG 282 ==
LOC: ER 12:45 → OVERFLOW 21:59 → WEST WING 07-06 08:44
PROVIDERS: ADMIT Nurse Practitioner; ATTEND Internal Medicine Pulmonary Disease
DX: K85.90 Acute pancreatitis without necrosis or infection, unspecified (principal); I11.0 Hypertensive heart disease with heart failure; I50.9 Heart failure, unspecified; B37.9 Candidiasis, unspecified; D75.839 Thrombocytosis, unspecified; F12.10 Cannabis abuse, uncomplicated; F15.90 Other stimulant use, unspecified, uncomplicated; Z20.822 Contact with and (suspected) exposure to COVID-19; F17.210 Nicotine dependence, cigarettes, uncomplicated; F31.9 Bipolar disorder, unspecified; F41.9 Anxiety disorder, unspecified; K59.00 Constipation, unspecified; K21.9 Gastro-esophageal reflux disease without esophagitis; Z80.42 Family history of malignant neoplasm of prostate; Z87.11 Personal history of peptic ulcer disease; Z85.3 Personal history of malignant neoplasm of breast; J44.9 Chronic obstructive pulmonary disease, unspecified; K86.9 Disease of pancreas, unspecified
CPT/HCPCS: 36415; 74022; 74176; 74177; 80048; 80053; 80061; 80307; 81001; 82150; 82378; 83605; 83690; 85025; 86301; 87040; 87081; 87426; 96365; 96368; 96375; C9113; G0378; J0696; J1885; J2405; J3490; J7042; Q0162

== ENCOUNTER 2022-07-14 11:51 | Inpatient (IN) | payer MEDICAID ==
[~2022-07-14] VITALS: Ht 152.4 cm; Wt 65.2 kg
[~2022-07-14 11:51] MED LIST changes: -LEVO500T31 PO; +PANT40TA2 PO
[2022-07-14 13:25] LABS: Basophils # (auto) 0.1 10 ^3/uL (0-0.2); Basophils % (auto) 0.7 % (0.0-2.0); Eosinophils # (auto) 0.1 10 ^3/uL (0-0.8); Eosinophils % (auto) 0.9 % (0.0-7.0); Hematocrit 42.8 % (36.0-46.0); Hemoglobin 14.1 g/dL (12.2-16.2); Lymphocytes # (auto) 2.2 10 ^3/uL (0.4-5.4); Mean Corpuscular Hemoglobin 26.6 pg (28.0-32.0); Mean Corpuscular Volume 80.7 fL (80.0-100.0); Monocytes # (auto) 0.7 10 ^3/uL (0-1.3); Monocytes % (auto) 6.7 % (0.0-12.0); Neutrophils # (auto) 7.7 10 ^3/uL (1.6-8.6); Neutrophils % (auto) 71.7 % (37.0-80.0); Red Blood Cells 5.31 10^6/uL (4.0-5.20); Red Cell Distribution Width 15.9 % (11.8-14.3); White Blood Cell 10.8 10^3/uL (4.4-10.8)
[2022-07-14 13:39] LABS: Albumin 3.3 g/dL (3.4-5.0); BUN/Creatinine Ratio 8.5; Calcium 9.6 mg/dL (8.5-10.1); Magnesium 1.9 mg/dL (1.6-2.6)
[2022-07-14] MEDS ORDERED: ONDANSETRON HCL 4 MG/2 ML VIAL IM ONE (15:00)
[2022-07-14] MEDS ORDERED: HYDROmorphone HCL 2 MG/ML VL/or syr IV ONE (15:00)
[2022-07-14 15:10] LABS: Bilirubin, Total 0.3 mg/dL (0.2-1.0); Total Protein 7.9 g/dL (6.4-8.2)
[2022-07-14 15:39] LABS: Potassium 4.4 mmol/L (3.5-5.1)
[2022-07-14 16:12] LABS: Lactic Acid w/Reflex 2.4 mmol/L (0.4-2.0)
[2022-07-14] MEDS ORDERED: SODIUM CHLORIDE 0.9% 1,000 ML IV ONE (18:30)
[2022-07-14] MEDS ORDERED: NITROGLYCERIN 0.4 MG SL TAB SL PRN (18:30)
[2022-07-14] MEDS ORDERED: DOCUSATE SOD 100 MG CAP PO PRN (18:30)
[2022-07-14] MEDS ORDERED: VANCOMYCIN PER PHARMACY 0 MG IV SCH (19:15)
[2022-07-14] MEDS ORDERED: VANCOMYCIN 1GM/250ML 250 ML IV ONE (20:00)
[2022-07-14] MEDS: metroNIDAZOLE 500MG/100ML 100 ML IV SCH ×2 (20:11→22:00)
[2022-07-14] MEDS: SODIUM CHLORIDE 0.9% 1,000 ML IV SCH (20:12)
[2022-07-14] MEDS: ONDANSETRON HCL 4 MG/2 ML VIAL IV PRN (21:46)
[2022-07-14] MEDS: MORPHINE SULFATE 4 MG/ML SYR/VIAL IV PRN (21:47)
[2022-07-14 21:55] LABS: Urine Bacteria FEW /hpf (None Seen); Urine Blood Negative /uL (Negative); Urine Hyaline Cast MOD /lpf (0 - 2); Urine Mucus FEW (None Seen); Urine Specific Gravity 1.016 (1.001-1.035); Urine WBC 2 /hpf (0 - 5)
[2022-07-14 22:11] LABS: Amphetamine Screen, Urine NEGATIVE (NEGATIVE); Barbiturate Scree,Urine NEGATIVE (NEGATIVE); Benzodiazephine Screen, Urine POSITIVE (NEGATIVE); Cannabinoid Screen, Urine POSITIVE (NEGATIVE); Cocaine Screen, Urine NEGATIVE (NEGATIVE); Opiate Scree,Urine NEGATIVE (NEGATIVE); Phencyclidine Screen, Urine NEGATIVE (NEGATIVE)
[2022-07-14 22:17] LABS: Alcohol, Urine < 3.0 mg/dL (0-10)
[2022-07-14] MEDS ORDERED: TEMAZEPAM 15 MG CAP PO ONE (23:45)
[2022-07-15] MEDS: SODIUM CHLORIDE 0.9% 1,000 ML IV SCH ×3 (04:23→15:00)
[2022-07-15] MEDS: MORPHINE SULFATE 4 MG/ML SYR/VIAL IV PRN ×2 (04:24→11:05)
[2022-07-15] MEDS: ONDANSETRON HCL 4 MG/2 ML VIAL IV PRN ×3 (04:24→20:51)
[2022-07-15 05:00] VITALS: BP 128/75
[2022-07-15 05:29] LABS: Eosinophils # (auto) 0.2 10 ^3/uL (0-0.8); Mean Corpuscular Hemoglobin 26.3 pg (28.0-32.0); Monocytes # (auto) 0.6 10 ^3/uL (0-1.3)
[2022-07-15 05:33] LABS: Basophils # (auto) 0.1 10 ^3/uL (0-0.2); Basophils % (auto) 0.8 % (0.0-2.0); Eosinophils % (auto) 2.7 % (0.0-7.0); Hematocrit 32.7 % (36.0-46.0); Hemoglobin 10.6 g/dL (12.2-16.2); Lymphocytes # (auto) 2.1 10 ^3/uL (0.4-5.4); Lymphocytes % (auto) 29.8 % (10.0-50.0); Mean Corpuscular Hgb Conc. 32.4 g/dL (32.0-36.0); Monocytes % (auto) 8.2 % (0.0-12.0); Neutrophils # (auto) 4.1 10 ^3/uL (1.6-8.6); Neutrophils % (auto) 58.5 % (37.0-80.0); Nucleated Red Blood Cells % 0.1 %; Red Blood Cells 4.04 10^6/uL (4.0-5.20); Red Cell Distribution Width 15.6 % (11.8-14.3)
[2022-07-15] MEDS: metroNIDAZOLE 500MG/100ML 100 ML IV SCH ×3 (06:42→20:59)
[2022-07-15 09:00] VITALS: BP 118/78
[2022-07-15] MEDS ORDERED: PANTOPRAZOLE 40 MG/10 ML VIAL INJ IV SCH (10:00)
[2022-07-15] MEDS ORDERED: VANCOMYCIN 1GM/250ML 250 ML IV SCH (10:00)
[2022-07-15] MEDS: METOPROLOL TARTRATE 25 MG TAB PO SCH ×2 (11:07→21:00)
[2022-07-15] MEDS: NICOTINE 7MG/24HR TOPICAL PATCH TD SCH (11:08)
[2022-07-15 13:00] VITALS: BP 127/86
[2022-07-15] MEDS: ENOXAPARIN SOD 40 MG/0.4 ML SYRINGE SC SCH (14:08)
[2022-07-15] MEDS ORDERED: levoFLOXacin 500MG 100 ML IV SCH (15:00)
[2022-07-15] MEDS: ALPRAZolam 0.25 MG TAB PO SCH ×2 (15:10→23:13)
[2022-07-15] MEDS: CYCLOBENZAPRINE HCL 10 MG TAB PO SCH ×2 (15:10→21:00)
[2022-07-15] MEDS: MORPHINE SULFATE INJ 2 MG/ml SYRG IV PRN ×2 (15:36→20:51)
[2022-07-15 17:00] VITALS: BP 112/84
[2022-07-15] MEDS: FAMOTIDINE 20 MG TAB PO SCH (21:00)
[2022-07-15] MEDS: TROLAMINE SALICYLATE 10% TOP CREAM TOP SCH (21:01)
[2022-07-15] MEDS: CELECOXIB 100 MG CAP PO SCH (21:05)
[2022-07-15 22:00] VITALS: BP 117/72
[2022-07-16] MEDS: MORPHINE SULFATE INJ 2 MG/ml SYRG IV PRN ×5 (02:09→22:29)
[2022-07-16] MEDS: ONDANSETRON HCL 4 MG/2 ML VIAL IV PRN ×2 (02:10→09:35)
[2022-07-16] MEDS: SODIUM CHLORIDE 0.9% 1,000 ML IV SCH (02:35)
[2022-07-16 05:00] VITALS: BP 102/66
[2022-07-16 05:45] LABS: Potassium 4.3 mmol/L (3.5-5.1)
[2022-07-16 05:52] LABS: Albumin 2.1 g/dL (3.4-5.0); BUN/Creatinine Ratio 7.6; Bilirubin, Total 0.2 mg/dL (0.2-1.0); Calcium 8.2 mg/dL (8.5-10.1); Total Protein 5.3 g/dL (6.4-8.2)
[2022-07-16] MEDS: ALPRAZolam 0.25 MG TAB PO SCH ×3 (06:58→22:26)
[2022-07-16] MEDS: CYCLOBENZAPRINE HCL 10 MG TAB PO SCH ×3 (06:58→22:25)
[2022-07-16] MEDS: metroNIDAZOLE 500MG/100ML 100 ML IV SCH ×2 (06:58→15:06)
[2022-07-16 09:00] VITALS: BP 117/79
[2022-07-16] MEDS: TROLAMINE SALICYLATE 10% TOP CREAM TOP SCH ×2 (09:30→22:26)
[2022-07-16] MEDS: ENOXAPARIN SOD 40 MG/0.4 ML SYRINGE SC SCH (09:30)
[2022-07-16] MEDS: CELECOXIB 100 MG CAP PO SCH ×2 (09:31→22:25)
[2022-07-16] MEDS: CITALOPRAM HYDROBR 20 MG TAB PO SCH (09:31)
[2022-07-16] MEDS: FAMOTIDINE 20 MG TAB PO SCH ×2 (09:32→22:26)
[2022-07-16] MEDS: NICOTINE 7MG/24HR TOPICAL PATCH TD SCH (09:33)
[2022-07-16] MEDS: METOPROLOL TARTRATE 25 MG TAB PO SCH ×2 (09:34→22:00)
[2022-07-16 13:00] VITALS: BP 101/71
[2022-07-16 17:00] VITALS: BP 109/90
[2022-07-16 22:00] VITALS: BP 113/68
[2022-07-17] MEDS: ALPRAZolam 0.25 MG TAB PO SCH ×2 (04:57→14:51)
[2022-07-17] MEDS: CYCLOBENZAPRINE HCL 10 MG TAB PO SCH ×2 (04:57→14:52)
[2022-07-17] MEDS: MORPHINE SULFATE INJ 2 MG/ml SYRG IV PRN ×2 (04:57→11:38)
[2022-07-17 05:00] VITALS: BP 143/68
[2022-07-17] MEDS: ENOXAPARIN SOD 40 MG/0.4 ML SYRINGE SC SCH (09:29)
[2022-07-17] MEDS: CITALOPRAM HYDROBR 20 MG TAB PO SCH (09:29)
[2022-07-17] MEDS: CELECOXIB 100 MG CAP PO SCH (09:29)
[2022-07-17] MEDS: TROLAMINE SALICYLATE 10% TOP CREAM TOP SCH (09:30)
[2022-07-17] MEDS: NICOTINE 7MG/24HR TOPICAL PATCH TD SCH (09:30)
[2022-07-17] MEDS: FAMOTIDINE 20 MG TAB PO SCH (09:31)
[2022-07-17 09:44] VITALS: BP 116/70
[2022-07-17] MEDS: METOPROLOL TARTRATE 25 MG TAB PO SCH (09:45)
[2022-07-17] MEDS: ONDANSETRON HCL 4 MG/2 ML VIAL IV PRN (11:25)
[2022-07-17 12:30] VITALS: BP 105/70
[2022-07-17] MEDS ORDERED: PANC24002 PO (12:59)
[2022-07-17] MEDS ORDERED: ALPR0.25 PO (12:59)
[2022-07-17] MEDS ORDERED: [UNRECOGNIZED DRUG - CODE] TOP (12:59)
[2022-07-17] MEDS ORDERED: CEL100T PO (12:59)
[2022-07-17] MEDS ORDERED: FAMO-161 PO (12:59)
[2022-07-17] MEDS ORDERED: CYCL-611 PO (12:59)
[2022-07-17 17:05] VITALS: BP 96/58
== END 2022-07-17 19:25 | disposition home or self-care (01) | DRG 241 ==
LOC: EDUNIT# 11:51 → ER 11:51 → EDBD 11:51 → TELE 18:38 → TELE-EAST 22:50
PROVIDERS: ADMIT Registered Nurse; ATTEND Hospitalist
DX: K29.70 Gastritis, unspecified, without bleeding (principal); K86.3 Pseudocyst of pancreas; I50.9 Heart failure, unspecified; D75.839 Thrombocytosis, unspecified; F19.10 Other psychoactive substance abuse, uncomplicated; Z20.822 Contact with and (suspected) exposure to COVID-19; J44.9 Chronic obstructive pulmonary disease, unspecified; F41.9 Anxiety disorder, unspecified; F17.210 Nicotine dependence, cigarettes, uncomplicated; F31.9 Bipolar disorder, unspecified; K57.30 Diverticulosis of large intestine without perforation or abscess without bleeding; G89.29 Other chronic pain; S13.9XXA Sprain of joints and ligaments of unspecified parts of neck, initial encounter; Z88.5 Allergy status to narcotic agent; Z87.11 Personal history of peptic ulcer disease; Z88.0 Allergy status to penicillin; Z88.8 Allergy status to other drugs, medicaments and biological substances; K86.1 Other chronic pancreatitis
CPT/HCPCS: 36415; 72125; 74176; 80053; 80061; 80307; 81001; 83605; 83690; 83735; 84702; 85025; 87045; 87081; 87086; 87205; 87426; 87427; 96361; 96365; 96372; 96375; C9113; G0378; J1956; J2405; J3490

== ENCOUNTER 2022-08-24 01:47 | Inpatient (IN) | payer MEDICAID ==
[~2022-08-24] VITALS: Ht 152.4 cm; Wt 60.3 kg
[~2022-08-24 01:47] MED LIST changes: +ALPR0.25 PO; -BISM262C44 PO; +CEL100T PO; +CYCL-611 PO; +FAMO-161 PO; -METO-281 PO; +PANC24002 PO; -PANT40TA2 PO; -SACC1CAP3 PO; +[UNRECOGNIZED DRUG - CODE] TOP
[2022-08-24] MEDS ORDERED: HYDROcodone-ACET 10/325MG TAB PO ONE (11:45)
[2022-08-24] MEDS ORDERED: TETANUS-DIPTH-ACEL PERTUSSIS 0.5ML SYR Tdap IM ONE (11:45)
[2022-08-24] MEDS ORDERED: SODIUM CHLORIDE 0.9% 1,000 ML IV ONE (11:45)
[2022-08-24 12:43] LABS: Basophils # (auto) 0.1 10 ^3/uL (0-0.2); Eosinophils # (auto) 0.2 10 ^3/uL (0-0.8); Eosinophils % (auto) 2.2 % (0.0-7.0); Hematocrit 33.1 % (36.0-46.0); Lymphocytes # (auto) 2.1 10 ^3/uL (0.4-5.4); Lymphocytes % (auto) 23.6 % (10.0-50.0); Mean Corpuscular Hemoglobin 25.5 pg (28.0-32.0); Mean Corpuscular Hgb Conc. 33.2 g/dL (32.0-36.0); Mean Corpuscular Volume 76.8 fL (80.0-100.0); Monocytes # (auto) 0.4 10 ^3/uL (0-1.3); Monocytes % (auto) 4.9 % (0.0-12.0); Neutrophils # (auto) 6.1 10 ^3/uL (1.6-8.6); Neutrophils % (auto) 68.3 % (37.0-80.0); Nucleated Red Blood Cells % 0.1 %; Red Cell Distribution Width 16.9 % (11.8-14.3)
[2022-08-24] MEDS ORDERED: ACETAMINOPHEN 325 MG TAB PO PRN (12:45)
[2022-08-24] MEDS ORDERED: VANCOMYCIN PER PHARMACY 0 MG IV SCH (12:45)
[2022-08-24] MEDS ORDERED: CEFEPIME 2 GM in SODIUM CHL 0.9% 50 ML IV ONE (12:45)
[2022-08-24 13:05] LABS: Albumin 2.3 g/dL (3.4-5.0); Calcium 8.6 mg/dL (8.5-10.1); Potassium 3.8 mmol/L (3.5-5.1)
[2022-08-24 13:16] LABS: BUN/Creatinine Ratio 13.7; Bilirubin, Total 0.4 mg/dL (0.2-1.0); Total Protein 8.4 g/dL (6.4-8.2)
[2022-08-24] MEDS ORDERED: VANCOMYCIN 1GM/250ML 250 ML IV ONE (13:30)
[2022-08-24 13:39] LABS: CRP High Sensitivity 2.77 mg/dL (< 0.3)
[2022-08-24] MEDS ORDERED: CEFEPIME 2 GM in SODIUM CHL 0.9% 50 ML IV SCH (14:00)
[2022-08-24] MEDS: SODIUM CHLORIDE 0.9% 1,000 ML IV SCH (15:34)
[2022-08-24] MEDS ORDERED: ONDANSETRON HCL 4 MG/2 ML VIAL IV PRN (17:45)
[2022-08-24] MEDS: PANCREATIC ENZYMES PO SCH (18:00)
[2022-08-24] MEDS: MORPHINE SULFATE INJ 2 MG/ml SYRG IV PRN ×2 (18:01→23:55)
[2022-08-24 18:35] LABS: Urine Bacteria FEW /hpf (None Seen); Urine Blood Negative /uL (Negative); Urine Specific Gravity 1.005 (1.001-1.035); Urine WBC <1 /hpf (0 - 5)
[2022-08-24 22:38] VITALS: BP 170/100
[2022-08-24] MEDS: CELECOXIB 100 MG CAP PO SCH (22:50)
[2022-08-24] MEDS: ASCORBIC ACID 500 MG TAB PO SCH (22:53)
[2022-08-24] MEDS: METOPROLOL TARTRATE 50 MG TAB PO SCH (22:53)
[2022-08-24] MEDS ORDERED: BACL20TA PO (22:59)
[2022-08-24 23:38] VITALS: BP 170/100
[2022-08-25] MEDS: CEFEPIME 2 GM in SODIUM CHL 0.9% 50 ML IV SCH ×3 (03:00→21:31)
[2022-08-25] MEDS: SODIUM CHLORIDE 0.9% 1,000 ML IV SCH ×2 (03:10→17:21)
[2022-08-25] MEDS ORDERED: CEFEPIME 2 GM in SODIUM CHL 0.9% 50 ML IV SCH (04:00)
[2022-08-25 05:00] VITALS: BP 121/72
[2022-08-25] MEDS: VANCOMYCIN 750mg/250ml 250 ML IV SCH ×2 (05:21→17:00)
[2022-08-25] MEDS: MORPHINE SULFATE INJ 2 MG/ml SYRG IV PRN ×4 (05:26→21:33)
[2022-08-25] MEDS: PANCREATIC ENZYMES PO SCH ×3 (08:00→18:00)
[2022-08-25 09:00] VITALS: BP 125/81
[2022-08-25] MEDS: CELECOXIB 100 MG CAP PO SCH ×2 (09:53→21:31)
[2022-08-25] MEDS: ZINC SULFATE 220mg CAP or TAB PO SCH (09:53)
[2022-08-25] MEDS: CITALOPRAM HYDROBR 20 MG TAB PO SCH (09:53)
[2022-08-25] MEDS: METOPROLOL TARTRATE 50 MG TAB PO SCH ×2 (09:54→21:32)
[2022-08-25] MEDS: MULTIPLE VITAMIN TAB PO SCH (09:54)
[2022-08-25] MEDS: ASCORBIC ACID 500 MG TAB PO SCH ×2 (09:55→21:31)
[2022-08-25] MEDS: FAMOTIDINE 20 MG TAB PO SCH (09:55)
[2022-08-25] MEDS: ENOXAPARIN SOD 40 MG/0.4 ML SYRINGE SC SCH (09:55)
[2022-08-25 13:00] VITALS: BP 127/80
[2022-08-25 16:56] VITALS: BP 131/92
[2022-08-25 22:00] VITALS: BP 144/84
[2022-08-26] MEDS: MORPHINE SULFATE INJ 2 MG/ml SYRG IV PRN ×4 (02:00→15:13)
[2022-08-26] MEDS: CEFEPIME 2 GM in SODIUM CHL 0.9% 50 ML IV SCH ×3 (02:10→18:36)
[2022-08-26] MEDS: VANCOMYCIN 750mg/250ml 250 ML IV SCH ×2 (04:49→16:43)
[2022-08-26 05:00] VITALS: BP 128/74
[2022-08-26] MEDS: PANCREATIC ENZYMES PO SCH ×3 (08:00→18:00)
[2022-08-26] MEDS: SODIUM CHLORIDE 0.9% 1,000 ML IV SCH (08:17)
[2022-08-26 09:00] VITALS: BP_SYST 133; BP_SYST 153; BP_SYST 156; BP_DIAS 45; BP_DIAS 55; BP_DIAS 66
[2022-08-26] MEDS: ZINC SULFATE 220mg CAP or TAB PO SCH (09:53)
[2022-08-26] MEDS: CELECOXIB 100 MG CAP PO SCH ×2 (09:53→20:59)
[2022-08-26] MEDS: CITALOPRAM HYDROBR 20 MG TAB PO SCH (09:53)
[2022-08-26] MEDS: MULTIPLE VITAMIN TAB PO SCH (09:54)
[2022-08-26] MEDS: METOPROLOL TARTRATE 50 MG TAB PO SCH ×2 (09:54→22:04)
[2022-08-26] MEDS: FAMOTIDINE 20 MG TAB PO SCH (09:54)
[2022-08-26] MEDS: ENOXAPARIN SOD 40 MG/0.4 ML SYRINGE SC SCH (09:55)
[2022-08-26] MEDS: ASCORBIC ACID 500 MG TAB PO SCH ×2 (09:55→20:59)
[2022-08-26 13:00] VITALS: BP 147/82
[2022-08-26] MEDS ORDERED: BACLOFEN 10 MG TAB PO PRN (15:30)
[2022-08-26 17:00] VITALS: BP 140/85
[2022-08-26] MEDS: HYDROcodone-ACET 10/325MG TAB PO PRN (19:11)
[2022-08-26] MEDS: ALPRAZolam 0.25 MG TAB PO SCH (20:59)
[2022-08-26] MEDS: CYCLOBENZAPRINE HCL 10 MG TAB PO SCH (20:59)
[2022-08-26 22:00] VITALS: BP 124/81
[2022-08-27] MEDS: HYDROcodone-ACET 10/325MG TAB PO PRN ×3 (00:29→12:34)
[2022-08-27] MEDS: CEFEPIME 2 GM in SODIUM CHL 0.9% 50 ML IV SCH ×2 (03:40→12:26)
[2022-08-27 05:00] VITALS: BP 107/57
[2022-08-27] MEDS: CYCLOBENZAPRINE HCL 10 MG TAB PO SCH ×2 (05:42→14:11)
[2022-08-27] MEDS: VANCOMYCIN 750mg/250ml 250 ML IV SCH (05:57)
[2022-08-27 06:06] LABS: Basophils # (auto) 0.1 10 ^3/uL (0-0.2); Eosinophils # (auto) 0.3 10 ^3/uL (0-0.8); Hemoglobin 10.3 g/dL (12.2-16.2); Monocytes # (auto) 0.6 10 ^3/uL (0-1.3); Nucleated Red Blood Cells % 0.1 %; White Blood Cell 6.7 10^3/uL (4.4-10.8)
[2022-08-27 06:11] LABS: Eosinophils % (auto) 4.3 % (0.0-7.0); Hematocrit 31.7 % (36.0-46.0); Lymphocytes # (auto) 2.5 10 ^3/uL (0.4-5.4); Lymphocytes % (auto) 36.4 % (10.0-50.0); Mean Corpuscular Hgb Conc. 32.4 g/dL (32.0-36.0); Mean Corpuscular Volume 77.1 fL (80.0-100.0); Monocytes % (auto) 9.4 % (0.0-12.0); Neutrophils # (auto) 3.3 10 ^3/uL (1.6-8.6); Neutrophils % (auto) 48.9 % (37.0-80.0); Red Blood Cells 4.11 10^6/uL (4.0-5.20); Red Cell Distribution Width 17.2 % (11.8-14.3)
[2022-08-27 06:38] LABS: Calcium 8.6 mg/dL (8.5-10.1); Potassium 4.7 mmol/L (3.5-5.1)
[2022-08-27 06:40] LABS: BUN/Creatinine Ratio 29.6; CRP High Sensitivity 0.58 mg/dL (< 0.3)
[2022-08-27 08:00] VITALS: BP_SYST 108; BP_SYST 161; BP_DIAS 48; BP_DIAS 65
[2022-08-27] MEDS: PANCREATIC ENZYMES PO SCH ×2 (08:00→12:00)
[2022-08-27] MEDS: CITALOPRAM HYDROBR 20 MG TAB PO SCH (09:40)
[2022-08-27] MEDS: ASCORBIC ACID 500 MG TAB PO SCH (09:41)
[2022-08-27] MEDS: FAMOTIDINE 20 MG TAB PO SCH (09:41)
[2022-08-27] MEDS: ALPRAZolam 0.25 MG TAB PO SCH (09:41)
[2022-08-27] MEDS: ENOXAPARIN SOD 40 MG/0.4 ML SYRINGE SC SCH (09:41)
[2022-08-27] MEDS: MULTIPLE VITAMIN TAB PO SCH (09:41)
[2022-08-27] MEDS: METOPROLOL TARTRATE 50 MG TAB PO SCH (09:42)
[2022-08-27] MEDS: ZINC SULFATE 220mg CAP or TAB PO SCH (09:42)
[2022-08-27] MEDS: CELECOXIB 100 MG CAP PO SCH (09:42)
[2022-08-27 12:00] VITALS: BP_SYST 109; BP_SYST 142; BP_DIAS 50; BP_DIAS 65
[2022-08-27] MEDS ORDERED: HYDR-4902 PO (12:28)
[2022-08-27] MEDS ORDERED: BACDST PO (12:28)
[2022-08-27] MEDS ORDERED: MUPIROCIN 2% OINT 15gm or 22gm FOR MRSA NARES EACHNOSTRI SCH (13:00)
[2022-08-27 14:03] VITALS: BP 108/65
== END 2022-08-27 15:30 | disposition home or self-care (01) | DRG 383 ==
LOC: ER 01:47 → EDBD 01:47 → EDUNIT# 01:47 → OVERFLOW 12:46 → WEST WING 21:20
PROVIDERS: ADMIT Nurse Practitioner Family; ATTEND Hospitalist
PROC: 3E0234Z Introduction of Serum, Toxoid and Vaccine into Muscle, Percutaneous Approach (ICD-10-PCS; principal; 2022-08-24)
DX: L03.119 Cellulitis of unspecified part of limb (principal); R64 Cachexia; I50.9 Heart failure, unspecified; B95.62 Methicillin resistant Staphylococcus aureus infection as the cause of diseases classified elsewhere; F17.210 Nicotine dependence, cigarettes, uncomplicated; F41.9 Anxiety disorder, unspecified; Z20.822 Contact with and (suspected) exposure to COVID-19; J44.9 Chronic obstructive pulmonary disease, unspecified; R07.89 Other chest pain; Z87.11 Personal history of peptic ulcer disease; Z88.0 Allergy status to penicillin; Z88.1 Allergy status to other antibiotic agents; Z23 Encounter for immunization; Z68.25 Body mass index [BMI] 25.0-25.9, adult
CPT/HCPCS: 36415; 73630; 80048; 80053; 80202; 81001; 83605; 85025; 86141; 87077; 87081; 87186; 87205; 87426; 90471; 90715; 93926; 96365; 96375; G0378; J2405

== ENCOUNTER 2023-01-15 09:23 | Emergency (ER) | payer MEDICAID ==
[~2023-01-15 09:23] MED LIST changes: +BACDST PO; +BACL20TA PO; +HYDR-4902 PO
== END 2023-01-15 10:33 | disposition left against medical advice (07) ==
LOC: ER 09:23
DX: R40.4 Transient alteration of awareness (principal); Z53.21 Procedure and treatment not carried out due to patient leaving prior to being seen by health care provider

== ENCOUNTER 2023-01-17 14:00 | Emergency (ER) | payer MEDICAID ==
[~2023-01-17] VITALS: Ht 152.4 cm; Wt 45.5 kg
[2023-01-17 14:17] VITALS: BP 122/91
[2023-01-17] MEDS ORDERED: SODIUM CHLORIDE 0.9% 1,000 ML IV ONE (15:30)
[2023-01-17 15:35] LABS: Alcohol, Urine < 3.0 mg/dL (0-10); Amphetamine Screen, Urine POSITIVE (NEGATIVE); Barbiturate Scree,Urine NEGATIVE (NEGATIVE); Benzodiazephine Screen, Urine NEGATIVE (NEGATIVE); Cannabinoid Screen, Urine POSITIVE (NEGATIVE); Cocaine Screen, Urine NEGATIVE (NEGATIVE)
[2023-01-17 15:43] LABS: Opiate Scree,Urine NEGATIVE (NEGATIVE); Phencyclidine Screen, Urine NEGATIVE (NEGATIVE)
[2023-01-17 15:55] LABS: Urine Bacteria FEW /hpf (None Seen); Urine Blood Negative /uL (Negative); Urine Mucus FEW (None Seen); Urine Specific Gravity 1.015 (1.001-1.035); Urine WBC 10 /hpf (0 - 5)
[2023-01-17 15:57] LABS: Basophils # (auto) 0 10 ^3/uL (0-0.2); Basophils % (auto) 0.8 % (0.0-2.0); Eosinophils # (auto) 0 10 ^3/uL (0-0.8); Eosinophils % (auto) 0.3 % (0.0-7.0); Hematocrit 47.9 % (36.0-46.0); Hemoglobin 15.6 g/dL (12.2-16.2); Lymphocytes % (auto) 32.3 % (10.0-50.0); Mean Corpuscular Hemoglobin 27.3 pg (28.0-32.0); Mean Corpuscular Hgb Conc. 32.6 g/dL (32.0-36.0); Mean Corpuscular Volume 83.9 fL (80.0-100.0); Monocytes # (auto) 0.5 10 ^3/uL (0-1.3); Monocytes % (auto) 8.1 % (0.0-12.0); Neutrophils # (auto) 3.7 10 ^3/uL (1.6-8.6); Neutrophils % (auto) 58.5 % (37.0-80.0); Nucleated Red Blood Cells % 0.2 %; Red Blood Cells 5.71 10^6/uL (4.0-5.20); Red Cell Distribution Width 16.6 % (11.8-14.3); White Blood Cell 6.3 10^3/uL (4.4-10.8)
[2023-01-17 16:47] LABS: Albumin 3.9 g/dL (3.4-5.0); Anion Gap 7 (5-15); Blood Alcohol < 3.0 mg/dL (0-5); Blood Urea Nitrogen 24 mg/dL (7-18); Calcium 8.8 mg/dL (8.5-10.1); Carbon Dioxide 21 mmol/L (21-32); Chloride 106 mmol/L (98-107); Glucose 88 mg/dL (74-106); Lipase 58 U/L (73-393); Magnesium 2.3 mg/dL (1.6-2.6); Potassium 3.7 mmol/L (3.5-5.1); Sodium 134 mmol/L (136-145)
[2023-01-17 16:50] LABS: Lactic Acid w/Reflex 2.7 mmol/L (0.4-2.0)
[2023-01-17 16:52] LABS: Alanine Aminotransferase 27 U/L (13-56); Alkaline Phosphatase 91 U/L (45-117); Aspartate Aminotransferase 24 U/L (15-37); BUN/Creatinine Ratio 27.3 (10.0-20.0); Bilirubin, Total 0.8 mg/dL (0.2-1.0); GFR African American 90 mL/min; GFR Non-African American 74 mL/min
[2023-01-17] MEDS ORDERED: NITROFURANTOIN 100 mg CAP PO ONE (17:00)
== END 2023-01-18 07:22 | disposition short-term general hospital (02) ==
LOC: ER 14:00 → EDBD 14:00 → ER 01-18 07:22
DX: R45.851 Suicidal ideations (principal); N39.0 Urinary tract infection, site not specified; F19.10 Other psychoactive substance abuse, uncomplicated; J44.9 Chronic obstructive pulmonary disease, unspecified; F17.210 Nicotine dependence, cigarettes, uncomplicated; F12.10 Cannabis abuse, uncomplicated; F15.10 Other stimulant abuse, uncomplicated; R10.2 Pelvic and perineal pain; Z88.2 Allergy status to sulfonamides; Z88.6 Allergy status to analgesic agent; Z88.0 Allergy status to penicillin; Z79.899 Other long term (current) drug therapy
CPT/HCPCS: 36415; 74176; 80053; 80307; 80320; 81001; 83605; 83690; 83735; 84484; 84702; 85025; 93005; 96360; 96361; 99285; J7030